=== PATIENT | female | born 1950 | race Caucasian/White ===

== ENCOUNTER → 2018-04-24 | Outpatient (CLI) | payer MEDICARE, MEDICAID ==
--- NOTE | 2018-04-24 09:23 | Diagnostic Imaging Report ---
INDICATION: Left knee pain. AP, oblique, and lateral views of the left knee are obtained. No fracture or acute bony abnormality is seen. There is no overt joint effusion. IMPRESSION: Negative left knee. Dictated by: Dictated on workstation # [id number]
--- NOTE | 2018-04-24 09:46 | Diagnostic Imaging Report ---
INDICATION: Nondisplaced fracture left great toe, followup. TECHNIQUE: 3 views of the left great toe (it is noted this is labeled as to the left foot, however positioning is typically demonstrated with the right foot.) CORRELATION STUDY: None FINDINGS: There is obliquely oriented fracture at the distal medial tuft of the great toe. There is slight medial and dorsal displacement of the main fracture fragment. Diastasis along the major fracture line of approximately 1-2 mm. The proximal phalanx and interphalangeal joint unremarkable. Very mild hallux varus primus first alignment suggested. The remaining toes appear to be held in partial flexure. Prominent plantar calcaneal spur formation present. The soft tissues are unremarkable. IMPRESSION: 1. Mildly diastased obliquely oriented fracture of the medial distal tuft of the great toe. Dictated by: Dictated on workstation # [id number]
== END ==
LOC: RAD FS 08:28
PROVIDERS: ATTEND Nurse Practitioner
DX: S92.425D Nondisplaced fracture of distal phalanx of left great toe, subsequent encounter for fracture with routine healing (principal); S92.404D Nondisplaced unspecified fracture of right great toe, subsequent encounter for fracture with routine healing; S80.02XS Contusion of left knee, sequela; M22.2X2 Patellofemoral disorders, left knee
CPT/HCPCS: 73562; 73660

== ENCOUNTER 2018-09-23 20:56 | Emergency (ER) | payer BC, MEDICARE, MEDICAID ==
[~2018-09-23] VITALS: Ht 170.2 cm; Wt 77.1 kg
--- OUTSIDE RECORDS SUMMARY | 2018-09-23 21:02 | XMS REPORT | Continuity of Care Document ---
Author Organization Unknown Address Unknown Phone Unavailable Allergies There is no data. Medications There is no data. Problems Date Dx Coded Attending Type Code Diagnosis Diagnosed By 05/07/2018 DOUG JACKSON Ot M22.2X2 PATELLOFEMORAL DISORDERS, LEFT KNEE 05/07/2018 DOUG JACKSON Ot S80.02XS CONTUSION OF LEFT KNEE, SEQUELA 05/07/2018 DOUG JACKSON Ot S92.404D NONDISP UNSP FX RIGHT GREAT TOE, SUBS FO 05/07/2018 DOUG JACKSON Ot S92.425D NONDISP FX OF DIST PHALANX OF L GREAT TO 05/09/2018 DOUG JACKSON Ot M22.2X2 PATELLOFEMORAL DISORDERS, LEFT KNEE 05/09/2018 DOUG JACKSON Ot S80.02XS CONTUSION OF LEFT KNEE, SEQUELA 05/09/2018 DOUG JACKSON Ot S92.404D NONDISP UNSP FX RIGHT GREAT TOE, SUBS FO 05/09/2018 DOUG JACKSON Ot S92.425D NONDISP FX OF DIST PHALANX OF L GREAT TO 05/09/2018 DOUG JACKSON Ot M22.2X2 PATELLOFEMORAL DISORDERS, LEFT KNEE 05/09/2018 DOUG JACKSON Ot S80.02XS CONTUSION OF LEFT KNEE, SEQUELA 05/09/2018 DOUG JACKSON Ot S92.404D NONDISP UNSP FX RIGHT GREAT TOE, SUBS FO 05/09/2018 DOUG JACKSON Ot S92.425D NONDISP FX OF DIST PHALANX OF L GREAT TO 05/09/2018 DOUG JACKSON Ot M22.2X2 PATELLOFEMORAL DISORDERS, LEFT KNEE 05/09/2018 DOUG JACKSON Ot S80.02XS CONTUSION OF LEFT KNEE, SEQUELA 05/09/2018 DOUG JACKSON Ot S92.404D NONDISP UNSP FX RIGHT GREAT TOE, SUBS FO 05/09/2018 DOUG JACKSON Ot S92.425D NONDISP FX OF DIST PHALANX OF L GREAT TO 05/10/2018 DOUG JACKSON Ot M22.2X2 PATELLOFEMORAL DISORDERS, LEFT KNEE 05/10/2018 DOUG JACKSON Ot S80.02XS CONTUSION OF LEFT KNEE, SEQUELA 05/10/2018 DOUG JACKSON Ot S92.404D NONDISP UNSP FX RIGHT GREAT TOE, SUBS FO 05/10/2018 DOUG JACKSON Ot S92.425D NONDISP FX OF DIST PHALANX OF L GREAT TO 06/14/2018 DOUG JACKSON Ot M22.2X2 PATELLOFEMORAL DISORDERS, LEFT KNEE 06/14/2018 DOUG JACKSON Ot S80.02XS CONTUSION OF LEFT KNEE, SEQUELA 06/14/2018 DOUG JACKSON Ot S92.404D NONDISP UNSP FX RIGHT GREAT TOE, SUBS FO 06/14/2018 DOUG JACKSON Ot S92.425D NONDISP FX OF DIST PHALANX OF L GREAT TO 06/14/2018 DOUG JACKSON Ot M22.2X2 PATELLOFEMORAL DISORDERS, LEFT KNEE 06/14/2018 DOUG JACKSON Ot S80.02XS CONTUSION OF LEFT KNEE, SEQUELA 06/14/2018 DOUG JACKSON Ot S92.404D NONDISP UNSP FX RIGHT GREAT TOE, SUBS FO 06/14/2018 DOUG JACKSON Ot S92.425D NONDISP FX OF DIST PHALANX OF L GREAT TO 06/15/2018 DOUG JACKSON Ot M22.2X2 PATELLOFEMORAL DISORDERS, LEFT KNEE 06/15/2018 DOUG JACKSON Ot S80.02XS CONTUSION OF LEFT KNEE, SEQUELA 06/15/2018 DOUG JACKSON Ot S92.404D NONDISP UNSP FX RIGHT GREAT TOE, SUBS FO 06/15/2018 DOUG JACKSON Ot S92.425D NONDISP FX OF DIST PHALANX OF L GREAT TO 08/16/2018 DOUG JACKSON Ot M22.2X2 PATELLOFEMORAL DISORDERS, LEFT KNEE 08/16/2018 DOUG JACKSON Ot S80.02XS CONTUSION OF LEFT KNEE, SEQUELA 08/16/2018 DOUG JACKSON Ot S92.404D NONDISP UNSP FX RIGHT GREAT TOE, SUBS FO 08/16/2018 DOUG JACKSON Ot S92.425D NONDISP FX OF DIST PHALANX OF L GREAT TO 08/16/2018 DOUG JACKSON Ot M22.2X2 PATELLOFEMORAL DISORDERS, LEFT KNEE 08/16/2018 DOUG JACKSON Ot S80.02XS CONTUSION OF LEFT KNEE, SEQUELA 08/16/2018 DOUG JACKSON Ot S92.404D NONDISP UNSP FX RIGHT GREAT TOE, SUBS FO 08/16/2018 DOUG JACKSON Ot S92.425D NONDISP FX OF DIST PHALANX OF L GREAT TO 08/17/2018 DOUG JACKSON Ot M22.2X2 PATELLOFEMORAL DISORDERS, LEFT KNEE 08/17/2018 DOUG JACKSON Ot S80.02XS CONTUSION OF LEFT KNEE, SEQUELA 08/17/2018 DOUG JACKSON Ot S92.404D NONDISP UNSP FX RIGHT GREAT TOE, SUBS FO 08/17/2018 DOUG JACKSON Ot S92.425D NONDISP FX OF DIST PHALANX OF L GREAT TO 08/31/2018 DOUG JACKSON Ot M22.2X2 PATELLOFEMORAL DISORDERS, LEFT KNEE 08/31/2018 DOUG JACKSON Ot S80.02XS CONTUSION OF LEFT KNEE, SEQUELA 08/31/2018 DOUG JACKSON Ot S92.404D NONDISP UNSP FX RIGHT GREAT TOE, SUBS FO 08/31/2018 DOUG JACKSON Ot S92.425D NONDISP FX OF DIST PHALANX OF L GREAT TO Procedures There is no data. Results There is no data. Encounters ACCT No. Visit Date/Time Discharge Status Pt. Type Provider Facility Loc./Unit Complaint [id number] 06/05/2018 10:00:00 06/05/2018 23:59:59 CLS Outpatient DAVID NOYOLA [facility] [id number] 04/24/2018 08:28:00 04/24/2018 23:59:59 CLS Outpatient DOUG JACKSON [facility] FS S92.404D D80.02XS M22.2X2
--- NOTE | 2018-09-23 21:42 | Diagnostic Imaging Report ---
EXAMINATION: Right elbow radiographs, 2 views. COMPARISON: None. HISTORY: 67-year-old female, fall off porch. Right elbow pain. FINDINGS: There is no elbow joint effusion. There is no elbow joint dislocation. There is minimal degenerative type enthesopathy at the triceps tendon insertion. There are osteophytes arising from the coronoid without pronounced joint space loss. There is no identified acute fracture. There is no radiopaque foreign body. IMPRESSION: No identified acute bony abnormality at the level of the right elbow. Dictated by: Dictated on workstation # [id number]
--- NOTE | 2018-09-23 21:43 | Diagnostic Imaging Report ---
EXAMINATION: Right wrist radiographs, 3 views. COMPARISON: None. HISTORY: 67-year-old female, fall. Right wrist pain. FINDINGS: There is a chronic fracture deformity of the ulnar styloid. 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 There is no identified acute fracture. There is no radiopaque foreign body. IMPRESSION: 1. No identified acute bony abnormality at the level of the right wrist. 2. Remote prior fracture deformity of the ulnar styloid. 3. Advanced distal radioulnar arthritis. Dictated by: Dictated on workstation # [id number]
--- NOTE | 2018-09-23 22:00 | ED Upper Extremity ---
General Chief Complaint: Upper Extremity Stated Complaint: RIGHT ARM PAIN Nursing Triage Note: pt fell off porch injuring right arm, pt with full rom, co wrist and elbow pain, minor abrasions noted to elbow Nursing Sepsis Screen: No Definite Risk History of Present Illness Date Seen by Provider: Sep 23, 2018 Time Seen by Provider: 21:55 Initial Comments This 67-year-old lady fell off porch injuring right arm over her wrist and right elbow. Pt with full rom, co wrist and elbow pain, minor abrasions noted to elbow Onset: just prior to arrival Severity: mild Pain/Injury Location: right elbow, right wrist Method of Injury: fell Modifying Factors: Improves With Movement Allergies and Home Medications Patient Home Medication List Home Medication List Reviewed: Yes Review of Systems Constitutional: see HPI EENTM: see HPI Respiratory: see HPI Cardiovascular: see HPI Gastrointestinal: see HPI Genitourinary: see HPI Musculoskeletal: see HPI Skin: see HPI Psychiatric/Neurological: No Symptoms Reported, See HPI Past Ppznwoc-Xzudoy-Bqgmii Hx Past Med/Social Hx: Reviewed Nursing Past Med/Soc Hx Patient Social History Alcohol Use: Denies Use Recreational Drug Use: No Smoking Status: Never a Smoker 2nd Hand Smoke Exposure: No Recent Foreign Travel: No Contact w/Someone Who Travel: No Recent Infectious Disease Expo: No Recent Hopitalizations: No Physical Abuse: No Sexual Abuse: No Mistreated: No Fear: No Seasonal Allergies Seasonal Allergies: No Past Medical History Surgeries: No Tonsillectomy, Tubal Ligation Respiratory: No Cardiac: Yes Hypertension Neurological: No Genitourinary: No Gastrointestinal: No Musculoskeletal: No Endocrine: No HEENT: No Cancer: No Psychosocial: No Integumentary: No Blood Disorders: No Physical Exam Vital Signs Vital Signs - First Documented 09/23/18 21:09 Temp 98.4 Pulse 68 Resp 18 B/P (MAP) 138/90 (106) Pulse Ox 98 O2 Delivery Room Air Capillary Refill : Less Than 3 Seconds Height, Weight, BMI Height: 5'7.00" Weight: 170lbs. oz. 77.486601oi; BMI Method:Stated General Appearance: no apparent distress Elbow/Forearm: bone tenderness Wrist: Yes bone tenderness, Yes soft tissue tenderness Procedures/Interventions Splinting and Joint Reduction : Pre-Proc Neuro Vasc Exam: normal Post-Proc Neuro Vasc Exam: normal Progress Velcro splint was placed on the right wrist and the patient was placed in a sling Progress Velcro splint was placed in the right wrist and the patient was placed in a sling Arm Sling: [place] Splints: [place] Wrist Progress/Results/Core Measures Results/Orders My Orders Orders - EL RINCON MD Wrist 3 View Right (09/23/18 21:12) Elbow 2 View Right (09/23/18 21:12) Vital Signs/I&O 09/23/18 21:09 Temp 98.4 Pulse 68 Resp 18 B/P (MAP) 138/90 (106) Pulse Ox 98 O2 Delivery Room Air Blood Pressure Mean: 106 Progress Progress Note : Time: 22:07 Progress Note This 67-year-old lady injured her right elbow and right wrist. She has abrasion over right elbow. Examination reveals her slight tenderness of the right elbow and right wrist X-rays of the wrist and elbow are negative for fractures Patient was placed in a Velcro splint in the right wrist and placed in a sling Post splinting the patient has good neurovascular function She is instructed to take ibuprofen for pain Departure Impression Primary Impression: Contusion of right wrist Additional Impressions: Contusion of right elbow Abrasion of right elbow Disposition: 01 HOME, SELF-CARE Condition: Improved Departure-Patient Inst. Referrals: [facility][1]/[facility] (PCP) Primary Care Physician DAVID NOYOLA MD (Family) Primary Care Physician Patient Instructions: Common Wrist Injuries (DC), Skin Abrasions (DC), Contusion (DC), Wrist Sprain (DC) Add. Discharge Instructions: Please follow-up with your doctor as needed. Take ibuprofen for pain All discharge instructions reviewed with patient and/or family. Voiced understanding. EL RINCON MD Sep 23, 2018 22:00
[2018-09-23 22:20] VITALS: BP 138/90
== END 2018-09-23 22:17 | disposition home or self-care (01) ==
LOC: EDUNIT# 20:56 → ER FS 20:58
DX: S50.01XA Contusion of right elbow, initial encounter (principal); S60.211A Contusion of right wrist, initial encounter; I10 Essential (primary) hypertension; Z98.51 Tubal ligation status; Z90.89 Acquired absence of other organs; W17.89XA Other fall from one level to another, initial encounter
CPT/HCPCS: 73070; 73110

== ENCOUNTER 2018-10-03 18:37 | Inpatient (IN) | payer BC, MEDICARE, MEDICAID ==
[~2018-10-03] VITALS: Ht 170.2 cm; Wt 78.1 kg
[2018-10-03] MEDS ORDERED: NS IV 1000 ML 1,000 ML IV SCH (19:00)
[2018-10-03] MEDS ORDERED: ASPIRIN 81 MG CHEW (CHILDREN'S ASA) PO ONE (19:00)
--- NOTE | 2018-10-03 19:07 | ED General ---
General Chief Complaint: Chest Pain Stated Complaint: CHEST PAIN History of Present Illness Date Seen by Provider: Oct 03, 2018 Time Seen by Provider: 19:03 Initial Comments Patient presenting to the emergency department for evaluation of chest pain that has been going on since yesterday afternoon and went on through yesterday off and on as well as all day today off and on and then stopped around 4 PM. She says that she has felt yucky all day long. I asked her what she meant by this and she says that she feels tired and achy all over. She says the pain in her chest is left-sided and she describes as achy as well. She denies any pressure tightness sharp sensations or radiation. She denies diaphoresis shortness of breath nausea vomiting. She says that she has a history of hypertension but did not take her medicines today and she felt lightheaded especially whenever she stood up. She says that she has no high cholesterol and diabetes or smoking history but her father has had multiple heart attacks. She denies any recent cardiac risk stratification but she thinks she had a normal stress test approximately 10 years ago. Allergies and Home Medications Allergies Coded Allergies: No Known Drug Allergies (Unverified , 10/03/18) Patient Home Medication List Home Medication List Reviewed: Yes Review of Systems Review of Systems Constitutional: malaise, weakness EENTM: no symptoms reported Respiratory: no symptoms reported Cardiovascular: chest pain Gastrointestinal: no symptoms reported Genitourinary: no symptoms reported Musculoskeletal: joint pain, muscle pain Skin: no symptoms reported Psychiatric/Neurological: No Symptoms Reported All Other Systems Reviewed Negative Unless Noted: Yes Past Hkrnurp-Qgiltl-Okocbz Hx Patient Social History 2nd Hand Smoke Exposure: No Recent Hopitalizations: No Seasonal Allergies Seasonal Allergies: No Past Medical History Surgeries: No Tonsillectomy, Tubal Ligation Respiratory: No Cardiac: Yes Hypertension Neurological: No Genitourinary: No Gastrointestinal: No Musculoskeletal: No Endocrine: No HEENT: No Cancer: No Psychosocial: No Integumentary: No Blood Disorders: No Physical Exam Vital Signs Vital Signs - First Documented 10/03/18 18:40 Temp 99.2 Pulse 92 Resp 21 B/P (MAP) 134/87 (103) Pulse Ox 96 Capillary Refill : Height, Weight, BMI Height: 5'7.00" Weight: 170lbs. oz. 77.470820lo; BMI Method:Stated General Appearance: No Apparent Distress, WD/WN Eyes: Bilateral Eye Normal Inspection HEENT: PERRL/EOMI Neck: Supple Respiratory: No Accessory Muscle Use, No Respiratory Distress Cardiovascular: Regular Rate, Rhythm Gastrointestinal: Non Tender, Soft Back: Normal Inspection Extremity: Normal Capillary Refill Neurologic/Psychiatric: Alert, Oriented x3 Skin: Normal Color, Warm/Dry Focused Exam Lactate Level 10/03/18 20:05: Lactic Acid Level Laboratory Tests Test 10/03/18 20:05 Progress/Results/Core Measures Suspected Sepsis SIRS Temperature: Pulse: Respiratory Rate: Laboratory Tests 10/03/18 18:52: White Blood Count 15.5H Blood Pressure / Mean: 10/03/18 20:05: Laboratory Tests 10/03/18 18:52: Creatinine 1.28, Platelet Count 243, Total Bilirubin 0.4 Results/Orders Lab Results Laboratory Tests Test 10/03/18 18:52 10/03/18 19:17 10/03/18 20:05 Range/Units White Blood Count 15.5 H 4.3-11.0 10^3/uL Red Blood Count 5.09 4.35-5.85 10^6/uL Hemoglobin 15.4 11.5-16.0 G/DL Hematocrit 47 35-52 % Mean Corpuscular Volume 92 80-99 FL Mean Corpuscular Hemoglobin 30 25-34 PG Mean Corpuscular Hemoglobin Concent 33 32-36 G/DL Red Cell Distribution Width 13.0 10.0-14.5 % Platelet Count 243 130-400 10^3/uL Mean Platelet Volume 10.4 7.4-10.4 FL Neutrophils (%) (Auto) 81 H 42-75 % Lymphocytes (%) (Auto) 14 12-44 % Monocytes (%) (Auto) 4 0-12 % Eosinophils (%) (Auto) 1 0-10 % Basophils (%) (Auto) 0 0-10 % Neutrophils # (Auto) 12.5 H 1.8-7.8 X 10^3 Lymphocytes # (Auto) 2.1 1.0-4.0 X 10^3 Monocytes # (Auto) 0.7 0.0-1.0 X 10^3 Eosinophils # (Auto) 0.1 0.0-0.3 10^3/uL Basophils # (Auto) 0.1 0.0-0.1 10^3/uL Neutrophils % (Manual) 81 % Lymphocytes % (Manual) 15 % Monocytes % (Manual) 3 % Eosinophils % (Manual) 0 % Basophils % (Manual) 1 % Band Neutrophils 0 % D-Dimer 0.38 0.00-0.49 UG/ML Sodium Level 141 135-145 MMOL/L Potassium Level 3.8 3.6-5.0 MMOL/L Chloride Level 102 98-107 MMOL/L Carbon Dioxide Level 24 21-32 MMOL/L Anion Gap 15 H 5-14 MMOL/L Blood Urea Nitrogen 22 H 7-18 MG/DL Creatinine 1.28 0.60-1.30 MG/DL Estimat Glomerular Filtration Rate 42 BUN/Creatinine Ratio 17 Glucose Level 250 H 70-105 MG/DL Calcium Level 9.2 8.5-10.1 MG/DL Corrected Calcium 9.3 8.5-10.1 MG/DL Magnesium Level 1.8 1.6-2.4 MG/DL Total Bilirubin 0.4 0.1-1.0 MG/DL Aspartate Amino Transf (AST/SGOT) 22 5-34 U/L Alanine Aminotransferase (ALT/SGPT) 14 0-55 U/L Alkaline Phosphatase 92 40-136 U/L Troponin I 0.94 *H <0.30 NG/ML Pro-B-Type Natriuretic Peptide 28771.0 H <75.0 PG/ML Total Protein 6.7 6.4-8.2 GM/DL Albumin 3.9 3.2-4.5 GM/DL Lipase 68 8-78 U/L Urine Color YELLOW Urine Clarity CLEAR Urine pH 5.5 5-9 Urine Specific Leslie 1.025 H 1.016-1.022 Urine Protein NEGATIVE NEGATIVE Urine Glucose (UA) NEGATIVE NEGATIVE Urine Ketones NEGATIVE NEGATIVE Urine Nitrite NEGATIVE NEGATIVE Urine Bilirubin NEGATIVE NEGATIVE Urine Urobilinogen 0.2 NORMAL MG/DL Urine Leukocyte Esterase NEGATIVE NEGATIVE Urine RBC (Auto) NEGATIVE NEGATIVE Urine RBC NONE /HPF Urine WBC 0-2 /HPF Urine Squamous Epithelial Cells 10-25 H /HPF Urine Crystals NONE /LPF Urine Bacteria FEW H /HPF Urine Casts NONE /LPF Urine Mucus NONE /LPF Urine Culture Indicated NO My Orders Orders - RAKEL DON DO Ekg Tracing (10/03/18 18:59) Chest 1 View Ap/Pa Only (10/03/18 18:59) Cbc With Automated Diff (10/03/18 18:59) Comprehensive Metabolic Panel (10/03/18 18:59) Fibrin Degradation Products (10/03/18 18:59) Lipase (10/03/18 18:59) Magnesium (10/03/18 18:59) Probnp Fs (10/03/18 18:59) Troponin I (10/03/18 18:59) Ua Culture If Indicated (10/03/18 18:59) Aspirin Chewable Tablet (Baby Aspirin Ch (10/03/18 19:00) Ns Iv 1000 Ml (Sodium Chloride 0.9%) (10/03/18 19:00) Manual Differential (10/03/18 18:52) Ceftriaxone For Iv Use (Rocephin For I (10/03/18 19:45) Azithromycin Injection (Zithromax Inject (10/03/18 20:00) Blood Culture (10/03/18 19:56) Lactic Acid Analyzer (10/03/18 19:56) Blood Culture (10/03/18 20:01) Enoxaparin Injection (Lovenox Injection) (10/03/18 20:15) Medications Given in ED Current Medications Medications Dose Ordered Sig/Dario Route Start Time Stop Time Status Last Admin Dose Admin Aspirin 324 mg ONCE ONCE PO 10/03/18 19:00 10/03/18 19:01 DC 10/03/18 19:08 324 MG Azithromycin 500 mg/Sodium Chloride 250 ml @ 250 mls/hr ONCE ONCE IV 10/03/18 20:00 10/03/18 20:59 10/03/18 20:14 250 MLS/HR Ceftriaxone Sodium 2000 mg/ Sterile Water 20 ml @ 240 mls/hr ONCE ONCE IV 10/03/18 19:45 10/03/18 19:49 DC 10/03/18 19:43 240 MLS/HR Vital Signs/I&O 10/03/18 18:40 Temp 99.2 Pulse 92 Resp 21 B/P (MAP) 134/87 (103) Pulse Ox 96 Capillary Refill : Progress Note : Progress Note Patient's EKG does not show any obvious ST elevation however she does have inverted T waves in lateral leads including V5 V6 and aVL. Will check labs give IV fluids and aspirin and observe closely. Patient has quite abnormal workup including leukocytosis with abnormal chest x- ray so I went ahead and started her on antibiotics. She does have a very elevated BNP as well so this could just will be pulmonary edema. Her troponin is elevated and she has an abnormal EKG but she is chest pain-free at this time. She will be treated as an NSTEMI with aspirin here as well as Lovenox per the request of Dr. Mcdaniel. Patient is nontoxic but she is at high risk for complications. I spoke to Dr. Hernandes who is willing to accept patient. She will be transferred to [place] [facility] in guarded condition. Lactic acid and blood cultures are both pending at this time. Patient has had normal vital signs throughout her emergency department stay. Critical Care Note Critical Care Total Time (minutes) 36 Departure Impression Primary Impression: NSTEMI (non-ST elevated myocardial infarction) Additional Impressions: Acute electrocardiogram changes CAP (community acquired pneumonia) Leukocytosis Elevated brain natriuretic peptide (BNP) level Disposition: ADMITTED INPATIENT Condition: Stable Departure-Patient Inst. Referrals: SELF,DAVID BONNER (PCP/Family) Primary Care Physician RAKEL DON DO Oct 03, 2018 19:07
[2018-10-03 19:09] LABS: HEMATOCRIT 47 % (35-52); HEMOGLOBIN 15.4 G/DL (11.5-16.0); MEAN CORPUSCULAR HEMOGLOBIN 30 PG (25-34); MEAN CORPUSCULAR HGB CONC 33 G/DL (32-36); MEAN CORPUSCULAR VOLUME 92 FL (80-99); MEAN PLATELET VOLUME 10.4 FL (7.4-10.4); PLATELET COUNT 243 10^3/uL (130-400); WHITE BLOOD COUNT 15.5 10^3/uL (4.3-11.0)
[2018-10-03 19:10] LABS: BASOPHILS # (AUTO) 0.1 10^3/uL (0.0-0.1); BASOPHILS % (AUTO) 0 % (0-10); EOSINOPHILS # (AUTO) 0.1 10^3/uL (0.0-0.3); EOSINOPHILS % (AUTO) 1 % (0-10); LYMPHOCYTES # (AUTO) 2.1 X 10^3 (1.0-4.0); LYMPHOCYTES % (AUTO) 14 % (12-44); MONOCYTES # (AUTO) 0.7 X 10^3 (0.0-1.0); MONOCYTES % (AUTO) 4 % (0-12); NEUTROPHILS # (AUTO) 12.5 X 10^3 (1.8-7.8); NEUTROPHILS % (AUTO) 81 % (42-75)
--- NOTE | 2018-10-03 19:25 | Diagnostic Imaging Report ---
EXAMINATION: Chest, 1 view. HISTORY: Chest pain, dizziness. COMPARISON: No comparison is available. FINDINGS: There is mild right basilar airspace opacity concerning for pneumonia. No pleural effusion or pneumothorax. No edema. Heart size is normal. IMPRESSION: Mild right basilar airspace opacity concerning for pneumonia. Dictated by: Dictated on workstation # [id number]
[2018-10-03 19:33] LABS: BACTERIA,URINE FEW /HPF; BILIRUBIN,URINE NEGATIVE (NEGATIVE); CLARITY,URINE CLEAR; COLOR,URINE YELLOW; GLUCOSE, URINE (UA) NEGATIVE (NEGATIVE); KETONES,URINE NEGATIVE (NEGATIVE); LEUKOCYTE ESTERASE ,URINE NEGATIVE (NEGATIVE); NITRITE,URINE NEGATIVE (NEGATIVE); PH,URINE 5.5 (5-9); PROTEIN,URINE NEGATIVE (NEGATIVE); UROBILINOGEN,URINE 0.2 MG/DL (NORMAL); WBC,URINE 0-2 /HPF
[2018-10-03 19:42] LABS: POTASSIUM 3.8 MMOL/L (3.6-5.0)
[2018-10-03 19:43] LABS: BILIRUBIN,TOTAL 0.4 MG/DL (0.1-1.0); CALCIUM 9.2 MG/DL (8.5-10.1); CREATININE SERUM 1.28 MG/DL (0.60-1.30); MAGNESIUM 1.8 MG/DL (1.6-2.4)
[2018-10-03 19:44] LABS: TOTAL PROTEIN 6.7 GM/DL (6.4-8.2)
[2018-10-03 19:45] LABS: ALBUMIN 3.9 GM/DL (3.2-4.5)
[2018-10-03] MEDS ORDERED: cefTRIAXone FOR IV USE 2,000 MG in WATER (STERILE) FOR INJECTION 20 ML IV ONE (19:45)
[2018-10-03 19:46] LABS: BAND NEUTROPHILS 0 %; BASOPHILS % (MANUAL) 1 %; EOSINOPHILS % (MANUAL) 0 %; LYMPHOCYTES % (MANUAL) 15 %; MONOCYTES % (MANUAL) 3 %; NEUTROPHILS % (MANUAL) 81 %
[2018-10-03] MEDS ORDERED: AZITHROMYCIN INJECTION 500 MG in NS (IVPB) 250 ML IV ONE (20:00)
[2018-10-03] MEDS ORDERED: ENOXAPARIN 40 MG/0.4 ML (LOVENOX) SYR SQ SCH (20:15)
--- NOTE | 2018-10-03 20:50 | NUR ---
Ems here for transport.
[2018-10-03 21:45] VITALS: BP 126/92
[2018-10-03 21:56] VITALS: BP 126/92
[2018-10-03 22:00] VITALS: BP 116/84
[2018-10-03 23:00] VITALS: BP 115/86
[2018-10-03 23:40] VITALS: BP 115/86
[2018-10-03] MEDS ORDERED: RT-ALBUTEROL/IPRATROPIUM 3 ML (DUONEB) VIAL INH PRN (23:45)
[2018-10-04] VITALS (7 sets, daily range): BP systolic 93–130; BP diastolic 53–84
[2018-10-04] MEDS: RT-ALBUTEROL/IPRATROPIUM 3 ML (DUONEB) VIAL INH SCH ×4 (02:04→21:52)
[2018-10-04 03:30] LABS: BASOPHILS % (AUTO) 0 % (0-10); EOSINOPHILS # (AUTO) 0.1 10^3/uL (0.0-0.3); EOSINOPHILS % (AUTO) 1 % (0-10); HEMATOCRIT 42 % (35-52); HEMOGLOBIN 13.9 G/DL (11.5-16.0); LYMPHOCYTES # (AUTO) 2.3 X 10^3 (1.0-4.0); LYMPHOCYTES % (AUTO) 19 % (12-44); MEAN CORPUSCULAR HEMOGLOBIN 30 PG (25-34); MEAN CORPUSCULAR HGB CONC 33 G/DL (32-36); MEAN CORPUSCULAR VOLUME 91 FL (80-99); MEAN PLATELET VOLUME 10.8 FL (7.4-10.4); MONOCYTES # (AUTO) 0.6 X 10^3 (0.0-1.0); MONOCYTES % (AUTO) 5 % (0-12); NEUTROPHILS # (AUTO) 9.3 X 10^3 (1.8-7.8); NEUTROPHILS % (AUTO) 76 % (42-75); PLATELET COUNT 218 10^3/uL (130-400); RED CELL DISTRIBUTION WIDTH 13.5 % (10.0-14.5); WHITE BLOOD COUNT 12.2 10^3/uL (4.3-11.0)
[2018-10-04 03:54] LABS: ALBUMIN 3.4 GM/DL (3.2-4.5); BILIRUBIN,TOTAL 0.5 MG/DL (0.1-1.0); CALCIUM 8.7 MG/DL (8.5-10.1); CREATININE SERUM 1.2 MG/DL (0.60-1.30); TOTAL PROTEIN 5.8 GM/DL (6.4-8.2)
--- NOTE | 2018-10-04 06:38 | Pulmonary Consultation ---
History of Present Illness History of Present Illness Date of Consultation 10/04/18 06:38 Time Seen by Provider: 08:16 Date of Admission History of Present Illness 67yo presented to ED secondary to left sided nonradiating CP, fatigue, generalized aches over the last 3 days. Pt was found to have RLL PNA, and an elevated troponin upon admission. Denies SOB. No n/v or abdominal pain. Allergies and Home Medications Allergies Coded Allergies: No Known Drug Allergies (Unverified , 10/03/18) Past Jbqhgdu-Isgass-Gkuozc Hx Patient Social History Alcohol Use: Denies Use Number of Drinks Today: 0 Recreational Drug Use: No Drug of Choice: reports not taking any drugs Smoking Status: Never a Smoker 2nd Hand Smoke Exposure: No Recent Foreign Travel: No Contact w/Someone Who Travel: No Recent Infectious Disease Expo: No Recent Hopitalizations: No Physical Abuse: No Sexual Abuse: No Mistreated: No Fear: No Seasonal Allergies Seasonal Allergies: Yes Past Medical History Surgeries: Yes (Tubal ligation) Tonsillectomy, Tubal Ligation Respiratory: No Cardiac: Yes (hypertension) Hypertension Neurological: No Genitourinary: No Gastrointestinal: No Musculoskeletal: Yes (arthritis in knee and wrists) Endocrine: No HEENT: No (Hard of hearing) Cancer: No Psychosocial: No Integumentary: No Blood Disorders: No Adverse Reaction/Blood Tranf: No Family Medical History Cardiovascular disease 19 FATHER G8 SISTER Myocardial infarction 19 FATHER Review of Systems Time Seen by Provider: 08:22 Constitutional: Weakness, Malaise; No: Fever, Chills, Sweats, Other Eyes: No: Pain, Vision change, Conjunctivae inflammation, Eyelid inflammation, Other, Redness ENT: Nose congestion Respiratory: Cough, Dry, Shortness of breath; No: Wheezing Gastrointestinal: Nausea Sepsis Event Evaluation Height, Weight, BMI Height: 5'7.00" Weight: 171lbs. 6.0oz. 77.475243ib; 26.8 BMI Method:Stated Exam Exam Vital Signs Date Time Temp Pulse Resp B/P (MAP) Pulse Ox O2 Delivery O2 Flow Rate FiO2 10/04/18 04:10 96 10/04/18 04:00 65 16 108/79 (89) 94 Room Air 10/04/18 02:08 95 Room Air 10/04/18 02:00 80 23 106/81 (89) 94 Room Air 10/04/18 01:00 64 10/04/18 01:00 66 16 107/81 (90) 93 Room Air 10/04/18 00:50 96 10/04/18 00:00 75 18 113/79 (90) 94 Room Air 10/03/18 23:40 64 96 10/03/18 23:00 64 12 115/86 (96) 96 Room Air 10/03/18 22:00 73 25 116/84 (95) 96 Room Air 10/03/18 21:56 98.2 73 24 126/92 96 Room Air 10/03/18 21:45 72 10/03/18 21:45 67 126/92 (103) 93 Room Air 10/03/18 20:55 99.0 83 21 127/90 (102) 96 Room Air 10/03/18 18:40 99.2 92 21 134/87 (103) 96 I & O 10/04/18 07:00 Intake Total 3240 ml Output Total 750 ml Balance 2490 ml Height & Weight Height: 5'7.00" Weight: 171lbs. 6.0oz. 77.067538da; 26.8 BMI Method:Stated General Appearance: No Apparent Distress, WD/WN HEENT: PERRL/EOMI Neck: Supple Respiratory: No Accessory Muscle Use, No Respiratory Distress, Decreased Breath Sounds Cardiovascular: Regular Rate, Rhythm Capillary Refill: Less Than 3 Seconds Gastrointestinal: normal bowel sounds, non tender Extremity: Normal Capillary Refill Neurologic/Psychiatric: Alert, Oriented x3 Skin: Normal Color, Warm/Dry Results Lab Laboratory Tests 10/03/18 18:52 10/04/18 03:10 Assessment/Plan Assessment/Plan RLL pneumonia -Continue Rocephin and azithromycin -Cultures pending NSTEMI -Cardiology following CAD PRIYANKA ROLLINS DO Oct 04, 2018 06:38
--- NOTE | 2018-10-04 06:45 | Consultation-Cardiology ---
HPI-Cardiology Cardiology Consultation Date of Consultation 10/04/18 Date of Admission Time Seen by Provider: 06:42 Indication: chest pain HPI 67-year-old lady with history of hypertension, has been having some tightness in her chest for the past 3 days, did not feel well, complaining of generalized fatigue and loss of energy, came to the emergency room and noted to have elevate d troponin level. Had low-grade fever, no shortness of breath. No palpitation, no pedal edema, no syncope or near syncopal episodes Home Medications & Allergies Allergies: Coded Allergies: No Known Drug Allergies (Unverified , 10/03/18) Home Medication List Reviewed: Yes REQ-Tubmpk-Dwnpar Hx Patient Social History Employed/Student: employed Alcohol Use: Denies Use Recreational Drug Use: No Drug of Choice: reports not taking any drugs Smoking Status: Never a Smoker 2nd Hand Smoke Exposure: No Recent Foreign Travel: No Recent Infectious Disease Expo: No Recent Hopitalizations: No Physical Abuse Screen: No Sexual Abuse: No Past Medical History discussed below Family Medical History Family History: Cardiovascular disease 19 FATHER G8 SISTER Myocardial infarction 19 FATHER Review of Systems-General Review of Systems Constitutional: see HPI, malaise, weakness EENTM: see HPI, no symptoms reported Respiratory: no symptoms reported, see HPI Cardiovascular: see HPI, chest pain; No edema, No Hx of Intervention, No palpitations, No syncope, No vascular heart diseas, No other Gastrointestinal: no symptoms reported, see HPI Genitourinary: no symptoms reported, see HPI Musculoskeletal: see HPI, joint pain, muscle pain Skin: no symptoms reported, see HPI Psychiatric/Neurological: No Symptoms Reported, See HPI All Other Systems Reviewed Negative Unless Noted: Yes Reviewed Test Results Reviewed Test Results Lab Laboratory Tests Test 10/03/18 18:52 10/03/18 19:17 10/03/18 20:05 10/03/18 22:23 Range/Units White Blood Count 15.5 H 4.3-11.0 10^3/uL Red Blood Count 5.09 4.35-5.85 10^6/uL Hemoglobin 15.4 11.5-16.0 G/DL Hematocrit 47 35-52 % Mean Corpuscular Volume 92 80-99 FL Mean Corpuscular Hemoglobin 30 25-34 PG Mean Corpuscular Hemoglobin Concent 33 32-36 G/DL Red Cell Distribution Width 13.0 10.0-14.5 % Platelet Count 243 130-400 10^3/uL Mean Platelet Volume 10.4 7.4-10.4 FL Neutrophils (%) (Auto) 81 H 42-75 % Lymphocytes (%) (Auto) 14 12-44 % Monocytes (%) (Auto) 4 0-12 % Eosinophils (%) (Auto) 1 0-10 % Basophils (%) (Auto) 0 0-10 % Neutrophils # (Auto) 12.5 H 1.8-7.8 X 10^3 Lymphocytes # (Auto) 2.1 1.0-4.0 X 10^3 Monocytes # (Auto) 0.7 0.0-1.0 X 10^3 Eosinophils # (Auto) 0.1 0.0-0.3 10^3/uL Basophils # (Auto) 0.1 0.0-0.1 10^3/uL Neutrophils % (Manual) 81 % Lymphocytes % (Manual) 15 % Monocytes % (Manual) 3 % Eosinophils % (Manual) 0 % Basophils % (Manual) 1 % Band Neutrophils 0 % D-Dimer 0.38 0.00-0.49 UG/ML Sodium Level 141 135-145 MMOL/L Potassium Level 3.8 3.6-5.0 MMOL/L Chloride Level 102 98-107 MMOL/L Carbon Dioxide Level 24 21-32 MMOL/L Anion Gap 15 H 5-14 MMOL/L Blood Urea Nitrogen 22 H 7-18 MG/DL Creatinine 1.28 0.60-1.30 MG/DL Estimat Glomerular Filtration Rate 42 BUN/Creatinine Ratio 17 Glucose Level 250 H 70-105 MG/DL Calcium Level 9.2 8.5-10.1 MG/DL Corrected Calcium 9.3 8.5-10.1 MG/DL Magnesium Level 1.8 1.6-2.4 MG/DL Total Bilirubin 0.4 0.1-1.0 MG/DL Aspartate Amino Transf (AST/SGOT) 22 5-34 U/L Alanine Aminotransferase (ALT/SGPT) 14 0-55 U/L Alkaline Phosphatase 92 40-136 U/L Troponin I 0.94 *H 0.895 *H <0.028 NG/ML Pro-B-Type Natriuretic Peptide 00193.0 H <75.0 PG/ML Total Protein 6.7 6.4-8.2 GM/DL Albumin 3.9 3.2-4.5 GM/DL Lipase 68 8-78 U/L Urine Color YELLOW Urine Clarity CLEAR Urine pH 5.5 5-9 Urine Specific [place] 1.025 H 1.016-1.022 Urine Protein NEGATIVE NEGATIVE Urine Glucose (UA) NEGATIVE NEGATIVE Urine Ketones NEGATIVE NEGATIVE Urine Nitrite NEGATIVE NEGATIVE Urine Bilirubin NEGATIVE NEGATIVE Urine Urobilinogen 0.2 NORMAL MG/DL Urine Leukocyte Esterase NEGATIVE NEGATIVE Urine RBC (Auto) NEGATIVE NEGATIVE Urine RBC NONE /HPF Urine WBC 0-2 /HPF Urine Squamous Epithelial Cells 10-25 H /HPF Urine Crystals NONE /LPF Urine Bacteria FEW H /HPF Urine Casts NONE /LPF Urine Mucus NONE /LPF Urine Culture Indicated NO Lactic Acid Level 2.03 *H 0.50-2.00 MMOL/L Test 10/03/18 22:56 10/04/18 03:10 Range/Units Lactic Acid Level 0.99 0.50-2.00 MMOL/L White Blood Count 12.2 H 4.3-11.0 10^3/uL Red Blood Count 4.66 4.35-5.85 10^6/uL Hemoglobin 13.9 11.5-16.0 G/DL Hematocrit 42 35-52 % Mean Corpuscular Volume 91 80-99 FL Mean Corpuscular Hemoglobin 30 25-34 PG Mean Corpuscular Hemoglobin Concent 33 32-36 G/DL Red Cell Distribution Width 13.5 10.0-14.5 % Platelet Count 218 130-400 10^3/uL Mean Platelet Volume 10.8 H 7.4-10.4 FL Neutrophils (%) (Auto) 76 H 42-75 % Lymphocytes (%) (Auto) 19 12-44 % Monocytes (%) (Auto) 5 0-12 % Eosinophils (%) (Auto) 1 0-10 % Basophils (%) (Auto) 0 0-10 % Neutrophils # (Auto) 9.3 H 1.8-7.8 X 10^3 Lymphocytes # (Auto) 2.3 1.0-4.0 X 10^3 Monocytes # (Auto) 0.6 0.0-1.0 X 10^3 Eosinophils # (Auto) 0.1 0.0-0.3 10^3/uL Basophils # (Auto) 0.0 0.0-0.1 10^3/uL Sodium Level 143 135-145 MMOL/L Potassium Level 4.0 3.6-5.0 MMOL/L Chloride Level 111 H 98-107 MMOL/L Carbon Dioxide Level 22 21-32 MMOL/L Anion Gap 10 5-14 MMOL/L Blood Urea Nitrogen 20 H 7-18 MG/DL Creatinine 1.20 0.60-1.30 MG/DL Estimat Glomerular Filtration Rate 45 BUN/Creatinine Ratio 17 Glucose Level 161 H 70-105 MG/DL Calcium Level 8.7 8.5-10.1 MG/DL Corrected Calcium 9.2 8.5-10.1 MG/DL Total Bilirubin 0.5 0.1-1.0 MG/DL Aspartate Amino Transf (AST/SGOT) 18 5-34 U/L Alanine Aminotransferase (ALT/SGPT) 15 0-55 U/L Alkaline Phosphatase 80 40-136 U/L Troponin I 0.810 *H <0.028 NG/ML Total Protein 5.8 L 6.4-8.2 GM/DL Albumin 3.4 3.2-4.5 GM/DL Physical Exam Physical Exam Vital Signs Vital Signs - First Documented 10/03/18 10/03/18 18:40 20:55 Temp 99.2 Pulse 92 Resp 21 B/P (MAP) 134/87 (103) Pulse Ox 96 O2 Delivery Room Air Capillary Refill : Less Than 3 Seconds Height, Weight, BMI Height: 5'7.00" Weight: 171lbs. 6.0oz. [id number]; 26.8 BMI Method:Stated General Appearance: No Apparent Distress, WD/WN Eyes: Bilateral Eye Normal Inspection HEENT: PERRL/EOMI, TMs Normal, Normal ENT Inspection Neck: Normal Inspection, Non Tender, Supple Respiratory: No Accessory Muscle Use, No Respiratory Distress Cardiovascular: Regular Rate, Rhythm, No Edema, No Gallop, No Murmur Gastrointestinal: Non Tender, Soft Back: Normal Inspection Extremity: Normal Capillary Refill Neurologic/Psychiatric: Alert, Oriented x3 Skin: Normal Color, Warm/Dry Lymphatic: No Adenopathy A/P-Cardiology Admission Diagnosis Non-ST elevation myocardial infarction Coronary artery disease Hypertension Family history of heart disease Assessment/Plan Non-ST elevation myocardial infarction, subacute DE, patient started to have chest pain about 3 days ago. Still having elevated troponin with T-wave inversion in the anterolateral leads, planning to proceed with cardiac catheterization possible PTCA. Elevated BNP, no signs of heart failure, will evaluate left ventricular function. Increase hilar density on chest x-ray, mild leukocytosis, questionable pneumonia, Dr. Bojorquez was consulted. Next Hypertension, monitor blood pressure Questionable hyperlipidemia I will evaluate lipid profile. Strong family history of heart disease Clinical Quality Measures DVT/VTE Risk/Contraindication: Risk Factor Score Per Nursin RFS Level Per Nursing on Admit: 4+=Very High RUBEN PEREZ MD Oct 04, 2018 06:45
--- NOTE | 2018-10-04 06:46 | Cardiac Procedure Note-CS/ASA ---
Pre-Procedure Note Pre-Op Procedure Note H&P Reviewed The H&P was reviewed, patient examined and no changes noted. Date H&P Reviewed: Oct 04, 2018 Time H&P Reviewed: 06:46 Conscious Sedation Pre-Proced Time 06:46 ASA Score 3 For ASA 3 and 4: Consider anesthesia and medical clearance. Also, for patients with a history of failed moderate sedation consider anesthesia. Airway Lungs Heart ASA score ASA 1: a normal healthy patient ASA 2: a patient with a mild systemic disease (mid diabetes, controlled hypertension, obesity x ASA 3: a patient with a severe systemic disease that limits activity (angina, COPD, prior Myocardial infarction) ASA 4: a patient with an incapacitating disease that is a constant threat to life (CHF, renal failure) ASA 5: a moribund patient not expected to survive 24 hrs. (ruptured aneurysm) ASA 6: a declared brain- patient whose organs are being harvested. For emergent operations, add the letter E after the classification Mallampati Classification Grade 3 Sedation Plan Analgesia, Amnesia, Plan communicated to team members, Discussed options with patient/fam, Discussed risks with patient/fam The patient is an appropriate candidate to undergo the planned procedure, sedation, and anesthesia. The patient immediately re-assessed prior to indication. RUBEN PEREZ MD Oct 04, 2018 06:46
[2018-10-04] MEDS ORDERED: LIDOCAINE 1% INJ 20 ML 20 ML VIAL ONE (06:49)
[2018-10-04] MEDS ORDERED: NS IV 1000 ML 1,000 ML ONE (06:50)
[2018-10-04] MEDS ORDERED: fentaNYL INJECTION 100 MCG/2 ML AMP ONE (06:50)
[2018-10-04] MEDS ORDERED: MIDAZOLAM 5 MG/5 ML (VERSED) VIAL ONE (06:50)
[2018-10-04] MEDS ORDERED: HEParin (CATH LAB) 2,000 ML IV ONE (06:50)
[2018-10-04] MEDS ORDERED: PATIENT MAY USE OWN MEDS, ALL PO SCH (08:00)
--- NOTE | 2018-10-04 08:04 | Cardiac Cath Report ---
Cardiac Cath Report Physician (s)/Organic Preparation Technician (s) Physician RUBEN PEREZ MD Pre-Procedure Diagnosis Pre-Procedure Diagnosis: elevated troponin level Post-Procedure Note Procedure Start Date: Oct 04, 2018 Name of Procedure: left heart catheterization Findings/Procedure Note PROCEDURE NOTE: 67-year-old lady with history of hypertension, has been having some chest discomfort, generalized fatigue, came into the emergency room and noted to have elevated troponin level and BNP level. EKG abnormality in the anterolateral lead, decided to proceed with cardiac catheterization possible PTCA. After explaining the procedure to the patient, all pros and cons were explained, all questions were answered. The patient signed the consent and then she was placed on the cardiac catheterization laboratory. Groin was prepped SL fashion local anesthesia was used. Sheath placed in the right femoral artery. Samira right and left catheter were used to access the coronary system. Pigtail was used to access the left ventricular cavity. Left ventriculogram was done, pullback LV to aorta was done At the end of the procedure the sheath was removed. Closure device was used FINDINGS: Hemodynamics LV 121/19, end-diastolic pressure of 19 Aorta 100/67 mean of 77 ANATOMY: Left Main is free of obstructive disease Left Anterior Descending is free of obstructive disease Left Circumflex is free of obstructive disease Right Coronory Artery is large dominant artery with mild disease nonobstructive disease LV Gram is prominent with hypokinesia involving the mid to apical anterior wall true apex and inferoapical segment systolic function is reduced estimated ejection fraction 30 percent CONCLUSION: 1. Normal coronary system 2. Severe cardiomyopathy with hypokinesia involving the mid to apical anterior wall true apex and inferoapical segment with estimated ejection fraction 30 percent, nonischemic cardiomyopathy DISCUSSION AND RECOMMENDATION: patient will be initiated on medical therapy, start low-dose diuretic and evaluate tolerance and response Anesthesia Type: Conscious Sedation Estimated blood loss (mL): 15 ml Contrast Amount: 50 ml Total Radiation Dose: 274 mGy Post-Procedure Diagnosis Post-operative diagnosis: Congestive heart failure nonischemic cardiomyopathy with ejection fraction 30 percent, acute LV systolic dysfunction Coronary artery disease Hypertension Shortness of breath RUBEN PEREZ MD Oct 04, 2018 08:04
[2018-10-04] MEDS ORDERED: LISI1TAB8 PO (10:06)
[2018-10-04] MEDS ORDERED: AMLO5TAB9 PO (10:06)
--- NOTE | 2018-10-04 10:08 | NUR ---
PATIENT STATES SHE TAKES TWO MEDICATIONS, ONE IN THE AM AND ONE AT NIGHT. SHE DID NOT KNOW THE NAMES OF THEM HOWEVER I CAN SEE WHAT HAS BEEN FILLED RECENTLY ON THE EXT MED HX. SHE KNOWS THEY START WITH AN A AND AN L. SHE DOES NOT TAKE ANYTHING OTC. Addendum: 10/04/18 at 1009 by SHILPA MCCLOUD [facility] BOTH PRESCRIPTIONS WERE FILLED IN MAY FOR 90 DAY SUPPLIES. SHE DOES ADMIT THE AMLODIPINE MAKES HER FEEL FUNNY BUT SHE TRIES TO TAKE THEM EVERYDAY PRESCRIBED.
[2018-10-04] MEDS: AZITHROMYCIN 250 MG TAB (ZITHROMAX) PO SCH (10:32)
[2018-10-04] MEDS: meTOprolol TARTRATE 25 MG (LOPRESSOR) TABLET PO SCH ×2 (10:33→20:24)
[2018-10-04] MEDS: NS IV 1000 ML 1,000 ML IV SCH ×2 (10:33→16:27)
[2018-10-04] MEDS: SACUBITRIL/VALSARTAN 24/26 MG (ENTRESTO) TABLET PO SCH ×2 (10:33→20:23)
--- NOTE | 2018-10-04 10:50 | History & Physical-Hospitalist ---
BERT VERGARA, 10/04/18 1050: History of Present Illness HPI/Chief Complaint CC: chest pain HPI: This is a 67 yo WF who presented to the [facility] 10/03 regarding chest pain. It began 10/02 and has stayed constant throughout. It is left-sided with a bit of pressure noted but not extensively. She feels tired and achy. Denies n/v, tightness, sharpness, radiation, or SOB. Source: patient Date Seen 10/04/18 Time Seen by a Provider: 11:00 Attending Physician Babita Stover DO PCP Self,Be BONNER Referring Physician Date of Admission Oct 03, 2018 at 20:00 Home Medications & Allergies Home Medications Reviewed patient Home Medication Reconciliation performed by pharmacy medication reconciliations coating technician and/or nursing. Patients Allergies have been reviewed. Allergies Allergies Coded Allergies No Known Drug Allergies (Unverified10/03/18) Past Puhyskt-Tmzvij-Fafnce Hx Patient Social History Marrital Status: Employed/Student: employed Alcohol Use: Denies Use Number of Drinks Today: 0 Recreational Drug Use: No Drug of Choice: reports not taking any drugs Smoking Status: Never a Smoker 2nd Hand Smoke Exposure: No Physical Abuse Screen: No Sexual Abuse: No Recent Foreign Travel: No Contact w/other who traveled: No Recent Hopitalizations: No Recent Infectious Disease Expo: No Seasonal Allergies Seasonal Allergies: Yes Past Medical History Surgeries: Tonsillectomy, Tubal Ligation Cardiac: Hypertension History of Blood Disorders: No Adverse Reaction to Blood Malik: No Family History Cardiovascular disease 19 FATHER G8 SISTER Myocardial infarction 19 FATHER Diabetes (mother) Review of Systems Constitutional: No chills, No fever EENTM: No ear discharge, No ear pain, No throat pain Respiratory: cough; No phlegm Cardiovascular: No chest pain, No palpitations Gastrointestinal: No nausea, No vomiting Genitourinary: No dysuria, No frequency Musculoskeletal: muscle weakness Skin: rash (w/in the last week or 2, gone now) Psychiatric/Neurological: No Symptoms Reported All Other Systems Reviewed Negative Unless Noted: Yes Physical Exam Physical Exam Vital Signs Vital Signs - First Documented 10/03/18 10/03/18 18:40 20:55 Temp 99.2 Pulse 92 Resp 21 B/P (MAP) 134/87 (103) Pulse Ox 96 O2 Delivery Room Air Capillary Refill : Less Than 3 Seconds Height, Weight, BMI Height: 5'7.00" Weight: 172lbs. 4.0oz. 78.100538ao; 26.8 BMI Method:Stated General Appearance: WD/WN HEENT: Pharynx Normal, Moist Mucous Membranes Respiratory: Lungs Clear, Normal Breath Sounds Cardiovascular: Regular Rate, Rhythm; No Diastolic Murmur, No Systolic Murmur Gastrointestinal: Normal Bowel Sounds; No Guarding, No Tenderness Extremity: Swelling Neurologic/Psychiatric: Alert, Oriented x3 Skin: Normal Color, Warm/Dry; No Rash Results Results/Procedures Labs Laboratory Tests 10/03/18 18:52 10/04/18 03:10 Patient resulted labs reviewed. D-dimer normal Troponin 0.810 pro-BNP 48749.0 Imaging CXR: R basilar airspace opacity that is likely pneumonia EKG: PVCs, abnormal T waves Procedures Cath performed 10/04 Assessment/Plan Admission Diagnosis NSTEMI, pneumonia Assessment and Plan Assessment: 1. NSTEMI 2. Pneumonia 3.Congestive heart failure 4. Nonischemic cardiomyopathy with ejection fraction 30 percent 5. Acute LV systolic dysfunction 6. Coronary artery disease 7. Hypertension 8. Shortness of breath Plan: 1. Cardiac cath this morning (10/04) 2. Ceftriaxone 1g QD IV 3. Azithromycin 250mg QD PO x4 doses 4. Breathing treatments 5. Consult Dr. Mcdaniel for follow-up 6. Consult Dr. Bojorquez for pneumonia and ICU management 7. Start diuretic 8. Initiate CHF treatment Diagnosis/Problems Diagnosis/Problems (1) NSTEMI (non-ST elevated myocardial infarction) Status: Acute (2) Elevated brain natriuretic peptide (BNP) level Status: Acute (3) Acute electrocardiogram changes Status: Acute (4) CAP (community acquired pneumonia) Status: Acute Clinical Quality Measures DVT/VTE Risk/Contraindication: Risk Factor Score Per Nursin RFS Level Per Nursing on Admit: 4+=Very High BABITA STOVER DO 10/04/182104: History of Present Illness HPI/Chief Complaint Underwent cardiac catheterization today which was negative Dr. Bojorquez was consulted and will be maintained on Rocephin and Zithromax for B/L pneumonia Overall chest pain has revolved and pt is not hypoxia Reviewed labs and meds Source: patient Past Pumccgt-Tclagx-Mrnhrw Hx Past Med/Social Hx: Reviewed Nursing Past Med/Soc Hx, Reviewed and Corrections made Patient Social History Marrital Status: Employed/Student: employed Smoking Status: Never a Smoker Past Medical History Cardiac: Hypertension Family History Cardiovascular disease 19 FATHER G8 SISTER Myocardial infarction 19 FATHER Review of Systems Constitutional: see HPI Respiratory: cough, dyspnea on exertion Cardiovascular: chest pain Physical Exam Physical Exam General Appearance: No Apparent Distress, WD/WN, Chronically ill, Obese Eyes: Right Eye Normal Inspection, Right Eye PERRL HEENT: PERRL/EOMI, Normal ENT Inspection, Pharynx Normal, Moist Mucous Membranes Neck: Full Range of Motion, Normal Inspection, Non Tender Respiratory: Chest Non Tender, No Accessory Muscle Use, No Respiratory Distress, Crackles, Decreased Breath Sounds Cardiovascular: Regular Rate, Rhythm, No Edema, No Gallop, No JVD, No Murmur, Normal Peripheral Pulses Gastrointestinal: Normal Bowel Sounds, No Organomegaly, No Pulsatile Mass, Non Tender, Soft Back: Normal Inspection, No CVA Tenderness, No Vertebral Tenderness Extremity: Normal Capillary Refill, Normal Inspection, Normal Range of Motion, Non Tender, No Calf Tenderness, No Pedal Edema Neurologic/Psychiatric: Alert, Oriented x3, No Motor/Sensory Deficits, Normal Mood/Affect Skin: Normal Color, Warm/Dry Lymphatic: No Adenopathy Assessment/Plan Admission Diagnosis Assessment: NSTEMI with no evidence of stenosis of the coronary vessels on cath today Elevated BNP Pneumonia bilateral Plan: Monitor hypoxia Abx Appreciate lung and heart specialties Admission Status: Inpatient Order (span 2 midnights) Reason for Inpatient Admission: Elevated troponin with pneumonia and eevated BNP new onset CHF Supervisory-Addendum Brief Verification & Attestation Participated in pt care: history, MDM, physical Personally performed: exam, history, MDM, supervision of care Care discussed with: Medical Student Procedures: n/a Results interpretation: Verified all documentation Verification and Attestation of Medical Student E/M Service A medical student performed and documented this service in my presence. I reviewed and verified all information documented by the medical student and made modifications to such information, when appropriate. I personally performed the physical exam and medical decision making. Babita Stover, Oct 04, 2018,21:04 BERT VERGARA, Oct 04, 2018 10:50 BABITA STOVER DO Oct 04, 2018 21:05
--- NOTE | 2018-10-04 10:56 | NUR ---
0815 PT TO ROOM ICU 4 VIA BED ACCOMPANIED BY HEART CENTER STAFF. DRESSING TO RIGHT GROIN D/I, PERIPHERAL PULSES + /+PT DROWSY AWAKENS TO VERBAL STIMULI, PT EDUCATED ON IMPORTANCE OF LEAVING HEAD DOWN AND LAYING FLAT. CALL LIGHT AND OTHER PERSONAL ITEMS WITHIN REACH, NO NEEDS NOTED AT THIS TIME WILL CONTINUE TO MONITOR.
--- NOTE | 2018-10-04 10:56 | NUR ---
0720 PT TO HEART CENTER VIA BED ACCOMPANIED BY HEART CENTER STAFF.
--- NOTE | 2018-10-04 11:15 | NUR ---
Pastoral care visit.
--- NOTE | 2018-10-04 13:37 | NUR ---
PT C/O OF SORENESS IN RIGHT LEG AND GENERALIZED "PAIN ALL OVER", DR STOVER NOTIFIED AND NEW ORDERS RECEIVED.
[2018-10-04] MEDS: HYDROcodone/APAP 5 MG/325 MG (LORTAB) TAB PO PRN ×2 (14:05→20:24)
--- NOTE | 2018-10-04 14:49 | NUR ---
REPORT TAKEN FROM PEPITO ANGELES AT THIS TIME. THIS RN WILL ASSUME CARE OF THIS PATIENT THROUGHOUT THE REMAINDER OF THIS SHIFT.
--- NOTE | 2018-10-04 14:54 | NUR ---
PATIENT TO FLOOR AT THIS TIME VIA W/C ACCOMPANIED BY RADIO INTERFERENCE TROUBLE SHOOTER. THIS RN WILL ASSUME CARE OF THIS PATIENT AT THIS TIME.
--- NOTE | 2018-10-04 16:12 | NUR ---
1450 PT TO ROOM 424 VIA W/C ACCOMPANIED BY MUTUEL CLERK. REPORT GIVEN TO Marin GOMEZ RN.
[2018-10-04] MEDS ORDERED: cefTRIAXone 1,000 MG IV (ROCEPHIN) VIAL ONE (20:10)
[2018-10-04] MEDS ORDERED: WATER (STERILE) FOR INJECTION 10 ML ONE (20:12)
[2018-10-04] MEDS: cefTRIAXone FOR IV USE 1,000 MG in WATER (STERILE) FOR INJECTION 10 ML IV SCH (20:23)
[2018-10-05] VITALS: BP 111/69
[2018-10-05] MEDS: RT-ALBUTEROL/IPRATROPIUM 3 ML (DUONEB) VIAL INH SCH ×4 (02:34→20:23)
[2018-10-05] MEDS: NS IV 1000 ML 1,000 ML IV SCH ×2 (02:44→16:36)
[2018-10-05 04:00] VITALS: BP 128/84
--- NOTE | 2018-10-05 05:09 | NUR ---
RIGHT GROIN SITE REMAINS THE SAME THROUGHOUT THE SHIFT. DRESSING IN PLACE, SOME BRUISING NOTED TO AREA. AREA HAS BEEN SOFT TO PALPATION. PATIENT RATED PAIN TO AREA A 4/10 AT BEGINNING OF SHIFT BUT DENIES PAIN TO AREA AT THIS TIME.
[2018-10-05 06:09] LABS: HEMOGLOBIN 12.6 G/DL (11.5-16.0); MEAN PLATELET VOLUME 11.1 FL (7.4-10.4); RED CELL DISTRIBUTION WIDTH 13.6 % (10.0-14.5); WHITE BLOOD COUNT 9.9 10^3/uL (4.3-11.0)
[2018-10-05 06:42] LABS: ALBUMIN 3.2 GM/DL (3.2-4.5); BILIRUBIN,TOTAL 0.4 MG/DL (0.1-1.0); CALCIUM 8.4 MG/DL (8.5-10.1); CREATININE SERUM 1.06 MG/DL (0.60-1.30); POTASSIUM 4.6 MMOL/L (3.6-5.0); TOTAL PROTEIN 5.2 GM/DL (6.4-8.2)
[2018-10-05 08:00] VITALS: BP 124/83
[2018-10-05] MEDS: meTOprolol TARTRATE 25 MG (LOPRESSOR) TABLET PO SCH ×2 (09:27→20:14)
[2018-10-05] MEDS: SACUBITRIL/VALSARTAN 24/26 MG (ENTRESTO) TABLET PO SCH ×2 (09:31→20:14)
[2018-10-05] MEDS: AZITHROMYCIN 250 MG TAB (ZITHROMAX) PO SCH (09:31)
--- NOTE | 2018-10-05 09:43 | Cardiology Progress Note ---
Subjective Date Seen by Provider: Oct 05, 2018 Time Seen by Provider: 09:31 Subjective/Events-last exam Patient is in bed, no new complaint, no chest pain or shortness of breath, no syncope, feeling better Review of Systems General: No Chills, No Night Sweats, No Fatigue, No Malaise, No Appetite, No Other HEENT: No Head Aches, No Visual Changes, No Eye Pain, No Ear Pain, No Dysphasia, No Sinus Congestion, No Post Nasal Drip, No Sore Throat, No Other Pulmonary: Dyspnea; No Cough, No Pleuritic Chest Pain, No Other Cardiovascular: No: Chest Pain, Palpitations, Orthopnea, Paroxysmal Noc. Dyspnea, Edema, Lt Headedness, Other Focused Exam Lactate Level 10/03/18 20:05: Lactic Acid Level 2.03*H 10/03/18 22:56: Lactic Acid Level 0.99 Objective-Cardiology Exam Last Set of Vital Signs Vital Signs 10/05/18 10/05/18 04:00 07:00 Temp 98.6 Pulse 60 Resp 14 B/P (MAP) 128/84 (99) Pulse Ox 93 O2 Delivery Room Air Capillary Refill : Less Than 3 Seconds I&O Intake and Output 10/05/18 00:00 Intake Total 7220 ml Output Total 2300 ml Balance 4920 ml Intake Oral 1220 ml IV Total 6000 ml Output Urine Total 2300 ml # Voids 1 General: Alert, Oriented X3, Cooperative HEENT: Atraumatic, PERRLA Neck: Supple, No JVD, No Thyromegaly Lungs: Clear to Auscultation, Normal Air Movement Heart: Regular Rate, Normal S1, Normal S2, No Murmurs Abdomen: Normal Bowel Sounds, Soft, No Tenderness, No Hepatosplenomegaly, No Masses Extremities: No Clubbing, No Cyanosis, No Edema, Normal Pulses, No Tenderness/Swelling Skin: No Rashes, No Breakdown, No Significant Lesion Neuro: Normal Gait, Normal Speech, Strength at 5/5 X4 Ext, Normal Tone, Sensation Intact Psych/Mental Status: Mental Status NL, Mood NL Results Lab Laboratory Tests 10/05/18 05:00 10/05/18 05:35 A/P-Cardiology Admission Diagnosis Non-ST elevation myocardial infarction Coronary artery disease Hypertension Family history of heart disease Assessment/Plan Non-ST elevation myocardial infarction, Type II LA, mild coronary artery disease per cardiac catheterization. 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
[2018-10-05] MEDS ORDERED: ASPI-983 PO (09:45)
[2018-10-05] MEDS ORDERED: SACU1TAB PO (09:45)
[2018-10-05] MEDS ORDERED: METO-333 PO (09:45)
[2018-10-05] MEDS ORDERED: DOCUSATE SODIUM 100 MG (COLACE) CAP PO PRN (10:30)
--- NOTE | 2018-10-05 10:37 | Pulmonary Progress Note ---
Subjective Time Seen by a Provider: 10:37 Subjective/Events-last exam Currently on RA with Sp02 98%. Sepsis Event Evaluation Height, Weight, BMI Height: 5'7.00" Weight: 172lbs. 4.0oz. 78.728338rl; 26.8 BMI Method:Stated Focused Exam Lactate Level 10/03/18 20:05: Lactic Acid Level 2.03*H 10/03/18 22:56: Lactic Acid Level 0.99 Exam Exam Vital Signs Date Time Temp Pulse Resp B/P (MAP) Pulse Ox O2 Delivery O2 Flow Rate FiO2 10/05/18 09:51 98 Room Air 10/05/18 08:00 97.0 72 18 124/83 (97) 96 Room Air 10/05/18 07:00 60 10/05/18 04:00 98.6 67 14 128/84 (99) 93 Room Air 10/05/18 03:50 Room Air 10/05/18 02:35 92 Room Air 10/05/18 00:40 75 10/05/18 00:25 Room Air 10/05/18 00:00 98.4 71 18 111/69 (83) 96 Room Air 10/04/18 21:52 91 Room Air 10/04/18 21:49 Room Air 10/04/18 20:49 Room Air 10/04/18 20:00 97.8 64 18 130/84 (99) 99 Room Air 10/04/18 16:00 98 Room Air 10/04/18 15:30 98 Room Air 10/04/18 15:00 99.4 63 20 93/53 (66) 99 Room Air 10/04/18 12:35 96 10/04/18 12:19 66 10/04/18 12:00 65 19 117/80 (92) 99 Room Air 10/04/18 12:00 98.0 10/04/18 10:38 96 Room Air l I & O 10/05/18 07:00 Intake Total 7820 ml Output Total 3125 ml Balance 4695 ml Height & Weight Height: 5'7.00" Weight: 172lbs. 4.0oz. 78.423899re; 26.8 BMI Method:Stated General Appearance: No Apparent Distress, WD/WN, Chronically ill, Obese HEENT: PERRL/EOMI, Normal ENT Inspection, Pharynx Normal, Moist Mucous Membranes Neck: Full Range of Motion, Normal Inspection, Non Tender Respiratory: Chest Non Tender, No Accessory Muscle Use, No Respiratory Distress, Crackles, Decreased Breath Sounds Cardiovascular: Regular Rate, Rhythm, No Edema, No Gallop, No JVD, No Murmur, Normal Peripheral Pulses Capillary Refill: Less Than 3 Seconds Gastrointestinal: normal bowel sounds, non tender Extremity: Normal Capillary Refill, Normal Inspection, Normal Range of Motion, Non Tender, No Calf Tenderness, No Pedal Edema Neurologic/Psychiatric: Alert, Oriented x3, No Motor/Sensory Deficits, Normal Mood/Affect Skin: Normal Color, Warm/Dry Lymphatic: No Adenopathy Results Lab Laboratory Tests 10/03/18 18:52 10/04/18 03:10 10/05/18 05:00 10/05/18 05:35 Assessment/Plan Assessment/Plan RLL pneumonia -Continue Rocephin and azithromycin started 10/04 -Can switch to PO Omnicef for total abx of 5days at discharge. -Cultures pending CHF with EF of 25-30% -Plan is for life vest then discharge tomorrow NSTEMI -Cardiology following CAD PRIYANKA RLOLINS DO Oct 05, 2018 10:37
--- NOTE | 2018-10-05 10:48 | Progress Note - Hospitalist ---
BERT VERGARA, 10/05/18 1048: Subjective HPI/CC On Admission Date Seen by Provider: Oct 05, 2018 Time Seen by Provider: 07:35 Underwent cardiac catheterization today which was negative Dr. Bojorquez was consulted and will be maintained on Rocephin and Zithromax for B/L pneumonia Overall chest pain has revolved and pt is not hypoxia Reviewed labs and meds Subjective/Events-last exam Pt pleasant Has not had a BM since cath procedure Denies generalized pain Denies chest pain No n/v Hoarse from breathing tx Vitals stable Labs: RBC 4.16 Ceftriaxone 1g QD Azithromycin 250mg QD - 2nd dose today Focused Exam Lactate Level 10/03/18 20:05: Lactic Acid Level 2.03*H 10/03/18 22:56: Lactic Acid Level 0.99 Objective Exam Vital Signs Vital Signs Date Time Temp Pulse Resp B/P (MAP) Pulse Ox O2 Delivery O2 Flow Rate FiO2 10/05/18 09:51 98 Room Air 10/05/18 08:00 97.0 72 18 124/83 (97) Capillary Refill : Less Than 3 Seconds Respiratory: Lungs Clear, Normal Breath Sounds Cardiovascular: Regular Rate, Rhythm Results/Procedures Lab Laboratory Tests 10/05/18 05:00 10/05/18 05:35 Patient resulted labs reviewed. Procedures Cath performed 10/04 Assessment/Plan Assessment and Plan Assess & Plan/Chief Complaint Assessment: 1. NSTEMI 2. Pneumonia 3.Congestive heart failure 4. Nonischemic cardiomyopathy with ejection fraction 30 percent 5. Acute LV systolic dysfunction 6. Coronary artery disease 7. Hypertension 8. Shortness of breath Plan: 1. Cardiac cath this morning (10/04) 2. Ceftriaxone 1g QD IV 3. Azithromycin 250mg QD PO x4 doses 4. Breathing treatments 5. Consult Dr. Mcdaniel for follow-up 6. Consult Dr. Bojorquez for pneumonia and ICU management 7. Start diuretic 8. Initiate CHF treatment Diagnosis/Problems Diagnosis/Problems (1) NSTEMI (non-ST elevated myocardial infarction) Status: Acute (2) Elevated brain natriuretic peptide (BNP) level Status: Acute (3) Acute electrocardiogram changes Status: Acute (4) CAP (community acquired pneumonia) Status: Acute Clinical Quality Measures DVT/VTE Risk/Contraindication: Risk Factor Score Per Nursin RFS Level Per Nursing on Admit: 4+=Very High BABITA STOVER DO 10/05/182055: Subjective Subjective/Events-last exam Patient was excited to go home today but cardiology informed me she needed LifeVest prior to discharge in addition she had been on lisinopril and Entresto was started in high risk for angioedema if both are in her system so we will hold discharge until tomorrow Bowels not moving yet Walking around pretty well Does not appear to need physical therapy or occupational therapy Lungs are clear Review of Systems General: Fatigue Objective Exam General Appearance: No Apparent Distress, WD/WN Respiratory: Chest Non Tender, Lungs Clear, Normal Breath Sounds, No Accessory Muscle Use, No Respiratory Distress Cardiovascular: Regular Rate, Rhythm, No Edema, No Gallop, No JVD, No Murmur, Normal Peripheral Pulses Neurologic/Psychiatric: Alert, Oriented x3, No Motor/Sensory Deficits, Normal Mood/Affect Assessment/Plan Assessment and Plan Assess & Plan/Chief Complaint Life vest Continue abx then complete at DC PO formulation Monitor closely Diagnosis/Problems Diagnosis/Problems (1) Broken heart syndrome Status: Acute (2) Cardiomyopathy Status: Acute Qualifiers: Qualified Codes: I42.9 - Cardiomyopathy, unspecified (3) Pneumonia Status: Acute Qualifiers: Qualified Codes: J18.1 - Lobar pneumonia, unspecified organism (4) Volume overload Status: Acute Supervisory-Addendum Brief Verification & Attestation Participated in pt care: history, MDM, physical Personally performed: exam, history, MDM, supervision of care Care discussed with: Medical Student Procedures: n/a Results interpretation: Verified all documentation Verification and Attestation of Medical Student E/M Service A medical student performed and documented this service in my presence. I reviewed and verified all information documented by the medical student and made modifications to such information, when appropriate. I personally performed the physical exam and medical decision making. Babita Stover, Oct 05, 2018,20:55 BERT VERGARA, Oct 05, 2018 10:48 BABITA STOVER DO Oct 05, 2018 20:56
--- NOTE | 2018-10-05 11:09 | NUR ---
CM/SS, respond to consult without specific concern. Interviewed patient who is somewhat hard of hearing. She indicates she ambulates independently, does have a FWW if needed. Does drive. Resides with spouse Maurice Mendez and daughter Jerri Iverson. Maurice works at [employer] television presenter. Patient had fall off of their porch 09/23/18, presented to [facility] ED with right arm injury, splint/sling, and sent home. This interview did not produce any issues. Patient is helping with caregiving for a neighbor some while the routine caregiver is out. Otherwise, she indicates she functions and has no concerns, limits, or needs. EMR reflects she is to get a life vest with tentative discharge planned for tomorrow and patient is aware of her care plan.
[2018-10-05 12:00] VITALS: BP 123/89
[2018-10-05] MEDS: SENNA W/DOCUSATE (SENOKOT S) TABLET PO SCH ×2 (12:16→20:14)
[2018-10-05 16:40] VITALS: BP 135/88
[2018-10-05] MEDS ORDERED: CATHETER FLUSH 10 ML SYR IV PRN (16:45)
[2018-10-05 19:55] VITALS: BP 126/84
[2018-10-05] MEDS ORDERED: WATER (STERILE) FOR INJECTION 10 ML ONE (19:55)
[2018-10-05] MEDS ORDERED: cefTRIAXone 1,000 MG IV (ROCEPHIN) VIAL ONE (19:55)
[2018-10-05] MEDS: CATHETER FLUSH 10 ML SYR IV SCH (20:14)
[2018-10-05] MEDS: cefTRIAXone FOR IV USE 1,000 MG in WATER (STERILE) FOR INJECTION 10 ML IV SCH (20:14)
[2018-10-06] VITALS: BP 108/66
[2018-10-06] MEDS: RT-ALBUTEROL/IPRATROPIUM 3 ML (DUONEB) VIAL INH SCH ×2 (03:28→09:18)
[2018-10-06 03:50] VITALS: BP 110/71
[2018-10-06] MEDS: CATHETER FLUSH 10 ML SYR IV SCH (06:32)
[2018-10-06 08:00] VITALS: BP 136/84
[2018-10-06] MEDS: AZITHROMYCIN 250 MG TAB (ZITHROMAX) PO SCH (08:12)
[2018-10-06] MEDS: meTOprolol TARTRATE 25 MG (LOPRESSOR) TABLET PO SCH (08:12)
[2018-10-06] MEDS: SENNA W/DOCUSATE (SENOKOT S) TABLET PO SCH (08:12)
[2018-10-06] MEDS: SACUBITRIL/VALSARTAN 24/26 MG (ENTRESTO) TABLET PO SCH (08:12)
[2018-10-06] MEDS ORDERED: RT-ALBUTEROL/IPRATROPIUM 3 ML (DUONEB) VIAL INH PRN (09:30)
--- NOTE | 2018-10-06 09:34 | Pulmonary Progress Note ---
Sepsis Event Evaluation Height, Weight, BMI Height: 5'7.00" Weight: 172lbs. 4.0oz. 78.537570cp; 26.8 BMI Method:Stated Focused Exam Lactate Level 10/03/18 20:05: Lactic Acid Level 2.03*H 10/03/18 22:56: Lactic Acid Level 0.99 Exam Exam Vital Signs Date Time Temp Pulse Resp B/P (MAP) Pulse Ox O2 Delivery O2 Flow Rate FiO2 10/06/18 09:18 97 Room Air 10/06/18 09:18 72 97 21 10/06/18 08:00 Room Air 10/06/18 08:00 97.4 73 18 136/84 (101) 97 Room Air 10/06/18 07:49 68 10/06/18 03:50 98.9 67 18 110/71 (84) 97 Room Air 10/06/18 03:31 94 Room Air 10/06/18 01:00 67 10/06/18 00:00 96.8 65 18 108/66 (80) 95 Room Air 10/05/18 20:24 97 Room Air 10/05/18 20:20 Room Air 10/05/18 19:55 98.8 93 20 126/84 (98) 96 Room Air 10/05/18 19:00 83 10/05/18 16:40 99.2 81 20 135/88 (104) 96 Room Air 10/05/18 16:07 96 Room Air 10/05/18 13:00 77 10/05/18 12:00 97.4 69 18 123/89 (100) 96 Room Air 10/05/18 09:51 98 Room Air I & O 10/06/18 07:00 Intake Total 2810 ml Output Total 2300 ml Balance 510 ml Height & Weight Height: 5'7.00" Weight: 172lbs. 4.0oz. 78.063663iy; 26.8 BMI Method:Stated General Appearance: No Apparent Distress, WD/WN HEENT: PERRL/EOMI, Normal ENT Inspection, Pharynx Normal, Moist Mucous Membranes Neck: Full Range of Motion, Normal Inspection, Non Tender Respiratory: Chest Non Tender, Lungs Clear, Normal Breath Sounds, No Accessory Muscle Use, No Respiratory Distress Cardiovascular: Regular Rate, Rhythm, No Edema, No Gallop, No JVD, No Murmur, Normal Peripheral Pulses Capillary Refill: Less Than 3 Seconds Gastrointestinal: normal bowel sounds, non tender Extremity: Normal Capillary Refill, Normal Inspection, Normal Range of Motion, Non Tender, No Calf Tenderness, No Pedal Edema Neurologic/Psychiatric: Alert, Oriented x3, No Motor/Sensory Deficits, Normal Mood/Affect Skin: Normal Color, Warm/Dry Lymphatic: No Adenopathy Results Lab Laboratory Tests 10/05/18 05:00 10/05/18 05:35 Assessment/Plan Assessment/Plan RLL pneumonia -Continue Rocephin and azithromycin started 10/04 -Can switch to PO Omnicef for total abx of 5days at discharge. -Cultures pending CHF with EF of 25-30% - life vest NSTEMI -Cardiology following CAD PRIYANKA ROLLINS DO Oct 06, 2018 09:34
[2018-10-06] MEDS ORDERED: CEFD300C3 PO (11:18)
--- NOTE | 2018-10-06 11:19 | Discharge Summary ---
Diagnosis/Chief Complaint Date of Admission Oct 03, 2018 at 20:00 Date of Discharge Discharge Date: Oct 06, 2018 Admission Diagnosis Assessment: NSTEMI with no evidence of stenosis of the coronary vessels on cath today Elevated BNP Pneumonia bilateral Plan: Monitor hypoxia Abx Appreciate lung and heart specialties Primary Care SelfBe MD Discharge Diagnosis (1) Broken heart syndrome Status: Acute (2) Cardiomyopathy Status: Acute (3) Pneumonia Status: Acute (4) Volume overload Status: Acute Discharge Summary Discharge Physical Exam Allergies: Coded Allergies: No Known Drug Allergies (Unverified , 10/03/18) Vitals & I&Os Vital Signs Date Time Temp Pulse Resp B/P (MAP) Pulse Ox O2 Delivery O2 Flow Rate FiO2 10/06/18 13:11 71 10/06/18 09:18 97 Room Air 10/06/18 09:18 21 10/06/18 08:00 97.4 18 136/84 (101) General Appearance: No Apparent Distress, WD/WN Respiratory: Chest Non Tender, Lungs Clear, Normal Breath Sounds, No Accessory Muscle Use, No Respiratory Distress Cardiovascular: Regular Rate, Rhythm, No Edema, No Gallop, No JVD, No Murmur, Normal Peripheral Pulses Neurologic/Psychiatric: Alert, Oriented x3, No Motor/Sensory Deficits, Normal Mood/Affect Hospital Course Was the Problem List Reviewed?: Yes Hospital course: patient had a complex hospital course after she was admitted for hypoxia, pneumonia, elevated troponin and elevated BNP. Underwent cath with was negative and ECHO revealed EF 25% sp Lifevest was initiated and Entresto for CHF along with abx for pneumonia and O2 and was weaned off O2 and diuresed with good results. Patient will have close f/u with PCP and Cardiology. Labs (last 24 hrs) Laboratory Tests 10/06/18 05:32: B-Type Natriuretic Peptide 292.5H Patient resulted labs reviewed. Pending Labs Discussion & Recommendations Discharge Planning: <30 minutes discharge planning Discharge Home Medications: Active Scripts Active Cefdinir 300 Mg Capsule 300 Mg PO BID Aspirin EC (Aspirin) 81 Mg Tablet.dr 81 Mg PO DAILY Entresto 24 mg-26 mg Tablet (Sacubitril/Valsartan) 1 Each Tablet 1 Tab PO BID Metoprolol Tartrate 25 Mg Tablet 12.5 Mg PO BID Instructions to patient/family Please see electronic discharge instructions given to patient. Clinical Quality Measures DVT/VTE Risk/Contraindication: Risk Factor Score Per Nursin RFS Level Per Nursing on Admit: 4+=Very High Problem Qualifiers (1) Cardiomyopathy: Cardiomyopathy type: unspecified Qualified Codes: I42.9 - Cardiomyopathy, unspecified (2) Pneumonia: Pneumonia type: due to unspecified organism Laterality: bilateral Lung location: lower lobe of lung Qualified Codes: J18.1 - Lobar pneumonia, unspecified organism PEDRO STOVER DO Oct 06, 2018 11:19
--- NOTE | 2018-10-06 13:41 | Cardiology Progress Note ---
Cardiology SOAP Progress Note Subjective: No cardiac complaints. Objective: I&O/Vital Signs 10/06/18 10/06/18 10/06/18 10/06/18 03:31 03:50 07:49 08:00 Temp 98.9 97.4 Pulse 67 68 73 Resp 18 18 B/P (MAP) 110/71 (84) 136/84 (101) Pulse Ox 94 97 97 O2 Delivery Room Air Room Air Room Air 10/06/18 10/06/18 10/06/18 10/06/18 08:00 09:18 09:18 13:11 Pulse 72 71 Pulse Ox 97 97 O2 Delivery Room Air Room Air FiO2 21 10/06/18 00:00 Intake Total 2490 ml Output Total 1650 ml Balance 840 ml Weight (Pounds): 172 Weight (Ounces): 4.0 Weight (Calculated Kilograms): 78.361826 Constitutional: AAO x 3 Respiratory: No accessory muscle use, No respiratory distress, No chest tender, No chest expansion is symmetric; chest is bilaterally symmetric; No lungs clear to percussion; lungs clear to auscultation; No crackles, No rhonchi, No rales, No stridor, No wheezing, No pleural rub, No other Cardiovascular: regular rate-rhythm; No irregularly irregular, No extra beats, No parasternal heave is noted, No JVD, No edema, No bradycardia, No tachycardia, No point of maximal impulse, No cardiac thrills are palpable; S1 and S2; No gallop/S3, No gallop/S4, No diastolic murmur, No systolic murmur, No friction rub, No click, No other Gastrointestional: No tender, No soft, No round, No distended, No pulsatile mass, No organomegaly, No guarding, No rebound, No tenderness, No hernia, No mass, No audible bowel sounds, No abnormal bowel sounds, No abdominal bruits, No spleenomegaly, No other Extremities: No normal range of motion, No non-tender, No normal inspection, No pedal edema, No calf tenderness, No normal capillary refill, No pelvis stable, No calf tenderness, No inflammation, No pedal edema, No slow capillary refill, No swelling, No other, No abrasion, No clubbing, No cyanosis, No ecchymosis, No laceration, No no lower extremity edema bilateral, No significant edema, No tenderness, No wound Neurologic/Psychiatric: no motor/sensory deficits, alert, normal mood/affect, oriented x 3 Skin: No normal color, No warm/dry, No cyanosis, No cool, No diaphoresis, No damp, No ecchymosis, No jaundice, No mottled, No pallor, No rash, No tattoos/piercings, No ulcerations, No rash on exposed areas, No ulcerations on exposed areas, No other Results/Procedures: Labs Laboratory Tests 10/06/18 05:32: B-Type Natriuretic Peptide 292.5H A/P: Assessment/Dx: Non-ST elevation myocardial infarction Coronary artery disease Hypertension Family history of heart disease Plan: Non-ST elevation myocardial infarction, Type II IA, mild coronary artery disease per cardiac catheterization. 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 Lifevest for primary prevention of sudden cardiac . Okay to discharge today and follow up with Dr. Mcdaniel. Hypertension, monitor blood pressure Strong family history of heart disease Thank you for your consultation. Please call me if you have any questions. Lauren Pennington MD, FACP, FACC, FSCAI, FHRS, CCDS Interventional Cardiology Cardiac Electrophysiology Vascular Medicine and Endovascular Interventions Focused Exam Lactate Level 10/03/18 20:05: Lactic Acid Level 2.03*H 10/03/18 22:56: Lactic Acid Level 0.99 Judith PENINNGTON MD Oct 06, 2018 1:40 pm
== END 2018-10-06 14:10 | disposition home or self-care (01) | DRG 280 ==
LOC: EDUNIT# 18:37 → ER FS 18:39 → ICU 20:00 → 4TH 10-04 14:53
PROVIDERS: ADMIT Internal Medicine; ATTEND Internal Medicine
PROC: 4A023N7 Measurement of Cardiac Sampling and Pressure, Left Heart, Percutaneous Approach (ICD-10-PCS; principal; 2018-10-04)
PROC: B2111ZZ Fluoroscopy of Multiple Coronary Arteries using Low Osmolar Contrast (ICD-10-PCS; 2018-10-04)
PROC: B2151ZZ Fluoroscopy of Left Heart using Low Osmolar Contrast (ICD-10-PCS; 2018-10-04)
DX: I21.A1 Myocardial infarction type 2 (principal); I51.81 Takotsubo syndrome; I50.21 Acute systolic (congestive) heart failure; J18.1 Lobar pneumonia, unspecified organism; J81.1 Chronic pulmonary edema; I25.10 Atherosclerotic heart disease of native coronary artery without angina pectoris; I10 Essential (primary) hypertension; D72.829 Elevated white blood cell count, unspecified; M17.10 Unilateral primary osteoarthritis, unspecified knee; M19.031 Primary osteoarthritis, right wrist; M19.032 Primary osteoarthritis, left wrist; Z82.49 Family history of ischemic heart disease and other diseases of the circulatory system
CPT/HCPCS: 36415; 71045; 80053; 81000; 83605; 83690; 83735; 83880; 84443; 84484; 85007; 85025; 85027; 85379; 86618; 86666; 86668; 86757; 87040; 93005; 93306; 93458; 94640; 94760; 96361; 96374; 96375

== ENCOUNTER → 2018-10-16 | Outpatient (CLI) | payer BC, MEDICARE, MEDICAID ==
[~2018-10-16] MED LIST: AMLO5TAB9 PO; ASPI-983 PO; CEFD300C3 PO; LISI1TAB8 PO; METO-333 PO; SACU1TAB PO
--- NOTE | 2018-10-16 14:59 | Diagnostic Imaging Report ---
INDICATION: CAD, CHF, DIASTOLIC DYSFUNCTION, LVH. COMPARISON: 10/03/2018. FINDINGS: Frontal and lateral views of the chest demonstrate normal heart size and pulmonary vascularity. The lungs are clear. There are no signs of infiltrate, pleural effusions or pneumothoraces. The visualized osseous structures show no acute abnormalities. IMPRESSION: 1. No acute process. No signs of infiltrates, effusions or pneumothoraces. Dictated by: Dictated on workstation # [id number]
== END ==
LOC: RAD 14:30
PROVIDERS: ATTEND Internal Medicine Cardiovascular Disease
DX: I25.10 Atherosclerotic heart disease of native coronary artery without angina pectoris (principal); I50.9 Heart failure, unspecified; I51.7 Cardiomegaly
CPT/HCPCS: 71046

== ENCOUNTER 2018-11-11 15:31 | Observation (INO) | payer BC, MEDICARE, MEDICAID ==
[~2018-11-11] VITALS: Ht 170 cm; Wt 74.4 kg
[2018-11-11] VITALS (13 sets, daily range): BP systolic 116–158; BP diastolic 77–106
--- NOTE | 2018-11-11 15:54 | ED General ---
General Chief Complaint: Chest Pain Stated Complaint: CHEST TIGHTNESS,FEVER History of Present Illness Date Seen by Provider: Nov 11, 2018 Time Seen by Provider: 15:49 Initial Comments Patient is a 67-year-old female who comes to the emergency department today complaining of chest pain. She has had some intermittent dizziness and dull sternal chest pain since waking at 7:00 this morning. She has not been able to identify any aggravating or alleviating factors. Pain has not been persistent and has not been radiating. Incidentally, the patient was admitted about 1 month earlier when she was noted to have significant cardiomyopathy with ejection fraction of 25%. She had elevated BNP and troponin at that admission and she did undergo heart catheterization although no significant blockage was reported to have been noted. Suspicion was present for broken heart syndrome as the patient did have a niece who earlier in the year. Patient was placed in a life vest which she is supposed to wear for 3 months and has been wearing. She does not complain of palpitations, diaphoresis, lightheadedness or dyspnea. No worsening orthopnea or dyspnea with exertion. Patient states she has dizziness and feels lightheaded on a daily basis. Today however she felt it was bad enough to cause her difficulty with ambulation which is not normal. Allergies and Home Medications Allergies Coded Allergies: No Known Drug Allergies (Unverified , 10/03/18) Home Medications Aspirin 81 Mg Tablet.dr, 81 MG PO DAILY Prescribed by: RUBEN MCDANIEL on 10/05/1845 Cefdinir 300 Mg Capsule, 300 MG PO BID Prescribed by: PEDRO STOVER on 10/06/18 1118 Metoprolol Tartrate 25 Mg Tablet, 12.5 MG PO BID Prescribed by: RUBEN MCDANIEL on 10/05/1845 Sacubitril/Valsartan 1 Each Tablet, 1 TAB PO BID Prescribed by: RUBEN MCDANIEL on 10/05/1845 Patient Home Medication List Home Medication List Reviewed: Yes Review of Systems Review of Systems Constitutional: dizziness Cardiovascular: see HPI Gastrointestinal: no symptoms reported Musculoskeletal: no symptoms reported Skin: no symptoms reported Psychiatric/Neurological: No Symptoms Reported Hematologic/Lymphatic: No Symptoms Reported All Other Systems Reviewed Negative Unless Noted: Yes Past Fecwbbo-Gjnyhh-Aghumi Hx Patient Social History Drug of Choice: reports not taking any drugs 2nd Hand Smoke Exposure: No Recent Hopitalizations: No Seasonal Allergies Seasonal Allergies: Yes Past Medical History Surgeries: Yes (Tubal ligation) Tonsillectomy, Tubal Ligation Respiratory: No Cardiac: Yes (hypertension) Hypertension Neurological: No Genitourinary: No Gastrointestinal: No Musculoskeletal: Yes (arthritis in knee and wrists) Endocrine: No HEENT: No (Hard of hearing) Cancer: No Psychosocial: No Integumentary: No Blood Disorders: No Adverse Reaction/Blood Tranf: No Family Medical History Cardiovascular disease 19 FATHER G8 SISTER Myocardial infarction 19 FATHER Diabetes Physical Exam Vital Signs Vital Signs - First Documented 11/11/18 15:34 Temp 36.3 Pulse 63 Resp 16 B/P (MAP) 164/88 (113) Pulse Ox 98 Capillary Refill : Height, Weight, BMI Height: 5'7.00" Weight: 172lbs. 4.0oz. 78.098221gh; 26.8 BMI Method:Stated General Appearance: No Apparent Distress, WD/WN HEENT: PERRL/EOMI, Normal ENT Inspection Neck: Full Range of Motion, Non Tender Respiratory: Chest Non Tender, Lungs Clear Cardiovascular: Regular Rate, Rhythm, No Murmur Gastrointestinal: Normal Bowel Sounds, Non Tender, Soft Extremity: Normal Capillary Refill, Normal Range of Motion Neurologic/Psychiatric: Alert, Oriented x3, Normal Mood/Affect Skin: Normal Color, Warm/Dry Progress/Results/Core Measures Suspected Sepsis SIRS Temperature: Pulse: Respiratory Rate: Laboratory Tests 11/11/18 15:46: White Blood Count 8.5 Blood Pressure / Mean: Laboratory Tests 11/11/18 15:46: Creatinine 1.27, Platelet Count 191 Results/Orders Lab Results Laboratory Tests Test 11/11/18 15:46 Range/Units White Blood Count 8.5 4.3-11.0 10^3/uL Red Blood Count 4.75 4.35-5.85 10^6/uL Hemoglobin 14.4 11.5-16.0 G/DL Hematocrit 44 35-52 % Mean Corpuscular Volume 92 80-99 FL Mean Corpuscular Hemoglobin 30 25-34 PG Mean Corpuscular Hemoglobin Concent 33 32-36 G/DL Red Cell Distribution Width 12.8 10.0-14.5 % Platelet Count 191 130-400 10^3/uL Mean Platelet Volume 10.5 H 7.4-10.4 FL Neutrophils (%) (Auto) 71 42-75 % Lymphocytes (%) (Auto) 22 12-44 % Monocytes (%) (Auto) 5 0-12 % Eosinophils (%) (Auto) 2 0-10 % Basophils (%) (Auto) 1 0-10 % Neutrophils # (Auto) 6.0 1.8-7.8 X 10^3 Lymphocytes # (Auto) 1.9 1.0-4.0 X 10^3 Monocytes # (Auto) 0.5 0.0-1.0 X 10^3 Eosinophils # (Auto) 0.1 0.0-0.3 10^3/uL Basophils # (Auto) 0.0 0.0-0.1 10^3/uL Sodium Level 143 135-145 MMOL/L Potassium Level 3.8 3.6-5.0 MMOL/L Chloride Level 106 98-107 MMOL/L Carbon Dioxide Level 28 21-32 MMOL/L Anion Gap 9 5-14 MMOL/L Blood Urea Nitrogen 17 7-18 MG/DL Creatinine 1.27 0.60-1.30 MG/DL Estimat Glomerular Filtration Rate 42 BUN/Creatinine Ratio 13 Glucose Level 140 H 70-105 MG/DL Calcium Level 9.4 8.5-10.1 MG/DL Troponin I < 0.30 <0.30 NG/ML Pro-B-Type Natriuretic Peptide 885.4 H <75.0 PG/ML My Orders Orders - LAURA ARNOLD DO Ed Iv/Invasive Line Start (11/11/18 15:35) Cbc With Automated Diff (11/11/18 15:35) Troponin I (11/11/18 15:35) Basic Metabolic Panel (11/11/18 15:35) Ekg Tracing (11/11/18 15:35) Chest 1 View Ap/Pa Only (11/11/18 15:43) Probnp Fs (11/11/18 16:37) Furosemide Injection (Lasix Injection) (11/11/18 17:00) Vital Signs/I&O 11/11/18 11/11/18 15:34 17:00 Temp 36.3 Pulse 63 62 Resp 16 13 B/P (MAP) 164/88 (113) 151/77 Pulse Ox 98 98 Capillary Refill : Progress Note : Time: 15:53 Progress Note Patient is seen and examined. The patient does not have chest pain at the moment. She states the pain stopped about one hour prior to presentation. I did review patient's medical record. She does have a recent history of cardiomyopathy discussed above. This was a new diagnosis for her. She has been wearing her life vest at home. Today, we will do chest x-ray, labs. EKG is completed and does not reveal any acute ST changes although there are frequent PVCs noted. 16:45: All results are reviewed. BNP is still pending. Chest x-ray are revealing for mild pulmonary vascular congestion although the patient has no clinical signs of fluid overload. Troponin is not elevated today but given the patient's recent diagnosis and treatment, would prefer she be observed on te lemetry overnight. I spoke to Dr. Stover about the patient who was agreeable to accept for observation admission. We did verify that availability at [facility] and [place]. Also spoke to the patient's primary billing and accounting staff assistant, Dr. Mcdaniel, who recommended some Lasix and will consult. The patient was given Lasix in the emergency room here. Overall, her emergency department course was unremarkable. She did not have active chest pain during. 17:50: Transferred for inpatient admission to [facility] in [place]. ECG Initial ECG Impression Date: Nov 11, 2018 Initial ECG Impression Time: 15:35 Initial ECG Rate: 60 Initial ECG Rhythm: PVC Initial ECG Impression: Normal Departure Communication (Admissions) Time/Spoke to Admitting Phy: 16:45 Dr. Stover Time/Spoke to Consulting Phy: 16:50 Dr. Mcdaniel Impression Primary Impression: Chest pain Disposition: ADMITTED INPATIENT Condition: Stable Admissions Decision to Admit Reason: Admit from ER (General) Decision to Admit/Date: Nov 11, 2018 Time/Decision to Admit Time: 16:30 Transfer Time Spoke to Accepting Phy: 16:[address] Stover Method of Transfer: EMS Departure-Patient Inst. Referrals: SELF,DAVID BONNER (PCP/Family) Primary Care Physician LAURA ARNOLD DO Nov 11, 2018 15:53
[2018-11-11 15:55] LABS: BASOPHILS % (AUTO) 1 % (0-10); EOSINOPHILS % (AUTO) 2 % (0-10); HEMATOCRIT 44 % (35-52); HEMOGLOBIN 14.4 G/DL (11.5-16.0); LYMPHOCYTES % (AUTO) 22 % (12-44); MEAN CORPUSCULAR HEMOGLOBIN 30 PG (25-34); MEAN CORPUSCULAR HGB CONC 33 G/DL (32-36); MEAN CORPUSCULAR VOLUME 92 FL (80-99); MEAN PLATELET VOLUME 10.5 FL (7.4-10.4); MONOCYTES % (AUTO) 5 % (0-12); NEUTROPHILS % (AUTO) 71 % (42-75); PLATELET COUNT 191 10^3/uL (130-400); RED CELL DISTRIBUTION WIDTH 12.8 % (10.0-14.5); WHITE BLOOD COUNT 8.5 10^3/uL (4.3-11.0)
[2018-11-11 15:56] LABS: EOSINOPHILS # (AUTO) 0.1 10^3/uL (0.0-0.3); LYMPHOCYTES # (AUTO) 1.9 X 10^3 (1.0-4.0); MONOCYTES # (AUTO) 0.5 X 10^3 (0.0-1.0)
[2018-11-11 16:16] LABS: BUN/CREATININE RATIO 13; CALCIUM 9.4 MG/DL (8.5-10.1); CARBON DIOXIDE 28 MMOL/L (21-32); CHLORIDE 106 MMOL/L (98-107); CREATININE SERUM 1.27 MG/DL (0.60-1.30); GFR ESTIMATED 42; GLUCOSE 140 MG/DL (70-105); POTASSIUM 3.8 MMOL/L (3.6-5.0); SODIUM 143 MMOL/L (135-145)
--- NOTE | 2018-11-11 16:18 | Diagnostic Imaging Report ---
INDICATION: Chest tightness. COMPARISON: October 16, 2018. TECHNIQUE: Single frontal radiograph of the chest dated November 11, 2018. FINDINGS: The cardiac silhouette is upper limits of normal in size. Mild central pulmonary vascular congestion. Mild right basilar opacities have developed. The left lung appears clear. No significant pleural effusion. No pneumothorax. No acute osseous abnormality. IMPRESSION: Mild right basilar atelectasis and/or pneumonitis. Mild central pulmonary vascular congestion without interstitial edema or pleural effusion. Dictated by: Dictated on workstation # [id number]
[2018-11-11] MEDS ORDERED: FUROSEMIDE 40 MG/4 ML INJ (LASIX) IVP ONE (17:00)
--- NOTE | 2018-11-11 18:35 | NUR ---
BUDDY HORN admitted to room CU12-1, with an admitting diagnosis of chest pain, on 11/11/18 from [place] via cart, accompanied by ems.BUDDY HORN introduced to surroundings, call light, bed controls, phone, TV, temperature control, lights, meal times, smoking policy, visitor policy, side rail policy, bathrooms and showers. Patient Rights given to patient in the handbook. BUDDY HORN verbalizes understanding that [facility] is not responsible for the loss or damage to any personal effects or valuables that are kept in the patients posession during their hospitalization. The following Patient Care Plans were discussed with the pt: Discharge Planning. BUDDY HORN verbalizes understanding of Interdisciplinary Patient Education. Patient and/or family were informed about the Rapid Response Team and its purpose.
[2018-11-11] MEDS ORDERED: ONDANSETRON 4 MG (ZOFRAN) ORAL DISSOLVE TAB PO PRN (20:00)
[2018-11-11] MEDS ORDERED: ONDANSETRON 4 MG/2 ML (SDV) Z0FRAN IVP PRN (20:00)
[2018-11-11] MEDS ORDERED: diphenhydrAMINE 25 MG TAB (BENADRYL) PO PRN (20:00)
[2018-11-11] MEDS ORDERED: DOCUSATE SODIUM 100 MG (COLACE) CAP PO PRN (20:00)
[2018-11-11] MEDS ORDERED: MELATONIN 3 MG TABLET PO PRN (20:00)
[2018-11-11] MEDS ORDERED: ALPRAZolam 0.25 MG (XANAX) TAB PO PRN (20:00)
[2018-11-11] MEDS ORDERED: fentaNYL INJECTION 100 MCG/2 ML AMP IVP PRN (20:00)
[2018-11-11] MEDS ORDERED: LOPERAMIDE 2 MG (IMODIUM) TABLET PO PRN (20:00)
[2018-11-11] MEDS ORDERED: CALCIUM CARBONATE 500 MG (TUMS) TAB.CHEW PO PRN (20:00)
[2018-11-11] MEDS ORDERED: HYDROcodone/APAP 5 MG/325 MG (LORTAB) TAB PO PRN (20:00)
[2018-11-11] MEDS ORDERED: ACETAMINOPHEN 500 MG TAB (TYLENOL) PO PRN (20:00)
[2018-11-11] MEDS: SENNA W/DOCUSATE (SENOKOT S) TABLET PO SCH (21:33)
[2018-11-12] VITALS: BP 137/88
[2018-11-12 03:26] LABS: BASOPHILS % (AUTO) 0 % (0-10); EOSINOPHILS # (AUTO) 0.1 10^3/uL (0.0-0.3); EOSINOPHILS % (AUTO) 2 % (0-10); HEMATOCRIT 43 % (35-52); HEMOGLOBIN 14.3 G/DL (11.5-16.0); LYMPHOCYTES # (AUTO) 2.3 X 10^3 (1.0-4.0); LYMPHOCYTES % (AUTO) 25 % (12-44); MEAN CORPUSCULAR HEMOGLOBIN 31 PG (25-34); MEAN CORPUSCULAR HGB CONC 33 G/DL (32-36); MEAN CORPUSCULAR VOLUME 92 FL (80-99); MEAN PLATELET VOLUME 10.4 FL (7.4-10.4); MONOCYTES # (AUTO) 0.6 X 10^3 (0.0-1.0); MONOCYTES % (AUTO) 7 % (0-12); NEUTROPHILS # (AUTO) 6.2 X 10^3 (1.8-7.8); NEUTROPHILS % (AUTO) 67 % (42-75); PLATELET COUNT 183 10^3/uL (130-400); RED CELL DISTRIBUTION WIDTH 13.2 % (10.0-14.5); WHITE BLOOD COUNT 9.2 10^3/uL (4.3-11.0)
[2018-11-12 03:56] LABS: ALBUMIN 3.7 GM/DL (3.2-4.5); BILIRUBIN,TOTAL 0.5 MG/DL (0.1-1.0); CALCIUM 9.3 MG/DL (8.5-10.1); CREATININE SERUM 1.32 MG/DL (0.60-1.30); POTASSIUM 3.9 MMOL/L (3.6-5.0); TOTAL PROTEIN 6.4 GM/DL (6.4-8.2)
[2018-11-12 04:00] VITALS: BP 124/61
--- NOTE | 2018-11-12 07:33 | History & Physical-Hospitalist ---
SHAHBAZ WATTS [facility] 11/12/18 0733: History of Present Illness HPI/Chief Complaint Pt is a 67 y.o F with hx of non-ischemic cardiomyopathy, CHF, and HTN who presented to the ED yesterday with dull sternal chest pain. State she woke up around 0700 yesterday with CP and felt tired so she reported to the ED. She had elevated preBNP while at ED and was transferred to [facility] for observation. Per EMR notes, pt did not have palpitations, diaphoresis, lightheadedness or dyspnea, no worsening orthopnea or dyspnea with exertion at the time. Today she denies the aforementioned sx as well. Pt was admitted a month ago and was noted for cardiomyopathy with EF of 25% with elevated Troponin and BNP. Heart cath at the time was negative for significant blockage. Pt was dx with takotsubo cardiomyopathy. Patient was placed in a life vest which she is supposed to wear for 3 months and has been wearing. Hx in the past year is notable for of her sister "from renal failure" and a 37 wk still born grand daughter. 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 Pt denies recent unintentional wt gain or loss, decreased interest in activities she previously enjoyed, disinterest in interacting with others, and abnormal sleep patterns. Pt reports hx of frequent GUEVARA which based on her description sound like tension headaches; states she is able to control them with over the counter painkillers. Source: patient, RN notes reviewed, EMS notes reviewed Exam Limitations: no limitations Date Seen 11/12/18 Time Seen by a Provider: 08:00 Attending Physician Babita Stover DO PCP Self,Be BONNER Referring Physician Date of Admission Nov 11, 2018 at 16:58 Home Medications & Allergies Home Medications Reviewed patient Home Medication Reconciliation performed by pharmacy medication reconciliations apprentice instrument technician and/or nursing. Patients Allergies have been reviewed. Aspirin 81 Mg Tablet., 81 MG PO DAILY Prescribed by: RUBEN MCDANIEL on 10/05/18 0945 Cefdinir 300 Mg Capsule, 300 MG PO BID Prescribed by: BABITA STOVER on 10/06/18 1118 Metoprolol Tartrate 25 Mg Tablet, 12.5 MG PO BID Prescribed by: RUBEN MCDANIEL on 10/05/18 0945 Sacubitril/Valsartan 1 Each Tablet, 1 TAB PO BID Prescribed by: RUBEN MCDANIEL on 10/05/18 0945 Allergies Allergies Coded Allergies No Known Drug Allergies (Unverified10/03/18) Past Uzavbjm-Mvcxnf-Wjzdym Hx Past Med/Social Hx: Reviewed Nursing Past Med/Soc Hx, Reviewed and Corrections made Patient Social History Marrital Status: Number of Children: 3 (3 daughters) Number of living children: 3 Living Status: lives at home with Employed/Student: unemployed Alcohol Use: Occasionally Uses Recreational Drug Use: No Drug of Choice: reports not taking any drugs Smoking Status: Never a Smoker 2nd Hand Smoke Exposure: No Recent Foreign Travel: No Contact w/other who traveled: No Recent Hopitalizations: Yes Recent Infectious Disease Expo: No Immunizations Up To Date Tetanus Booster (TDap): Unknown Seasonal Allergies Seasonal Allergies: Yes Past Medical History Surgeries: Cardiac, Tonsillectomy, Tubal Ligation Currently Using CPAP: No Currently Using BIPAP: No Cardiac: Cardiomyopathy (takotsubo cardiomyopathy, CHF), Hypertension : No Reproductive: No Hearing Impairment: Hard of Hearing History of Blood Disorders: No Adverse Reaction to Blood Malik: No Family History Cardiovascular disease 19 FATHER G8 SISTER Diabetes mellitus 19 FATHER G8 SISTER Myocardial infarction 19 FATHER Diabetes Review of Systems Constitutional: see HPI, dizziness; No weight gain, No weight loss EENTM: hearing loss (chronic) Respiratory: No cough, No dyspnea on exertion, No short of breath Cardiovascular: No chest pain, No edema, No palpitations, No syncope Gastrointestinal: No abdominal pain, No constipation, No diarrhea, No nausea, No vomiting Musculoskeletal: no symptoms reported Psychiatric/Neurological: Denies Anxiety, Denies Depressed Physical Exam Physical Exam Vital Signs Vital Signs - First Documented 11/11/18 11/11/18 15:34 18:41 Temp 36.3 Pulse 63 Resp 16 B/P (MAP) 164/88 (113) Pulse Ox 98 O2 Delivery Room Air Capillary Refill : Less Than 3 Seconds Height, Weight, BMI Height: 5'7.00" Weight: 164lbs. 4.0oz. 74.929153ox; 26.98 BMI Method:Stated General Appearance: No Apparent Distress, WD/WN, Other (Well groomed, pleasant White female, good eye contact, poor historian, tearfull when talking about sister and grand child) Eyes: Bilateral Eye Normal Inspection, Bilateral Eye PERRL HEENT: PERRL/EOMI, Normal ENT Inspection, Moist Mucous Membranes Neck: Normal Inspection Respiratory: Chest Non Tender, Lungs Clear, Normal Breath Sounds, No Accessory Muscle Use, No Respiratory Distress Cardiovascular: Regular Rate, Rhythm, No Edema, No Gallop, No JVD, No Murmur, Normal Peripheral Pulses Back: Normal Inspection, No Vertebral Tenderness Extremity: Normal Capillary Refill, Normal Inspection Neurologic/Psychiatric: Alert, Oriented x3, No Motor/Sensory Deficits Skin: Normal Color, Warm/Dry Results Results/Procedures Labs Laboratory Tests 11/11/18 15:46 11/12/18 03:17 Patient resulted labs reviewed. Assessment/Plan Admission Diagnosis Admission Status: Observation Assessment and Plan -Chest pain Resolved -Evidence of ischemia in all leads and probable L atrial abnormality noted on EKG this AM -Normal troponin w/ Mildly elevated BNP routine F/u with cardiology -Hyperglycemia Monitor at home low carb diet -Tension GUEVARA Maintain with over the counter meds -HTN Controlled on meds -Hx of takotsubo cardiomyopathy with normal Echo today Recovered -Strong family hx of DM and heart Dz Plan: -Continue home meds -D/C life vest per Dr. Mcdaniel -Discharge w/ f/u with PCP Clinical Quality Measures DVT/VTE Risk/Contraindication: Risk Factor Score Per Nursin RFS Level Per Nursing on Admit: 2=Moderate BABITA STOVER DO 11/12/182021: History of Present Illness HPI/Chief Complaint CC: SOB and weakness HPI: This is a 67yoWF known to me from broken heart syndrome who I saw a couple of months ago from Dr. Shah who presented to the [facility] ER with complaints of weakness and SOB found to be in mild heart failure and considering her significant cardiac hx she was placed in observation and Dr. Mcdaniel was consulted, pt was monitored closely after Lasix was given, and pt stabilized through the night. Dr. Mcdaniel evaluated the pt finding her ready for DC with close follow up with PCP and her echocardiogram showed normal ejection fraction which is great news and she will remain on her Entresto, and Beta jailene as an outpatient. Past Huztdjb-Viustq-Mphnqn Hx Family History Cardiovascular disease 19 FATHER G8 SISTER Diabetes mellitus 19 FATHER G8 SISTER Myocardial infarction 19 FATHER Physical Exam Physical Exam General Appearance: No Apparent Distress Respiratory: Lungs Clear Cardiovascular: Regular Rate, Rhythm Neurologic/Psychiatric: Alert, Oriented x3, No Motor/Sensory Deficits, Normal Mood/Affect Assessment/Plan Admission Diagnosis Assessment: Dyspnea CM HTN Plan: DC home Admission Status: Observation Diagnosis/Problems Diagnosis/Problems (1) Volume overload Status: Acute (2) Cardiomyopathy Status: Acute (3) Broken heart syndrome Status: Acute Supervisory-Addendum Brief Verification & Attestation Participated in pt care: history, MDM, physical Personally performed: exam, history, MDM, supervision of care Care discussed with: Medical Student Procedures: n/a Results interpretation: Verified all documentation Verification and Attestation of Medical Student E/M Service A medical student performed and documented this service in my presence. I reviewed and verified all information documented by the medical student and made modifications to such information, when appropriate. I personally performed the physical exam and medical decision making. Babita Stover, Nov 12, 2018,20:22 [facility] Nov 12, 2018 07:33 BABITA STOVER DO Nov 12, 2018 20:22
[2018-11-12 08:00] VITALS: BP 122/77
[2018-11-12] MEDS: SENNA W/DOCUSATE (SENOKOT S) TABLET PO SCH (09:00)
--- NOTE | 2018-11-12 09:00 | Consultation-Cardiology ---
HPI-Cardiology Cardiology Consultation Date of Consultation 11/12/18 Date of Admission Time Seen by Provider: 08:58 Indication: chest pain HPI 67-year-old lady with history of nonischemic cardiomyopathy, apical akinesia, start her on aggressive medical therapy and has been compliant with her medication. Started to have some chest pain and headache, came into the emergency room and was noted to have elevated proBNP. Currently laying down in bed feeling better, denied any active pain. No palpitation. No syncope or near syncopal episodes Home Medications & Allergies Allergies: Coded Allergies: No Known Drug Allergies (Unverified , 10/03/18) Home Medication List Reviewed: Yes AML-Nyorvw-Hrslul Hx Patient Social History Marital Status: Alcohol Use: Denies Use Recreational Drug Use: No Drug of Choice: reports not taking any drugs Smoking Status: Never a Smoker 2nd Hand Smoke Exposure: No Recent Foreign Travel: No Recent Infectious Disease Expo: No Recent Hopitalizations: No Past Medical History Discussed below Family Medical History Significant Family History: Diabetes Family History: Cardiovascular disease 19 FATHER G8 SISTER Myocardial infarction 19 FATHER Review of Systems-General Review of Systems Constitutional: dizziness, malaise EENTM: see HPI, no symptoms reported Respiratory: see HPI; No cough; dyspnea on exertion; No hemoptysis, No orthopnea, No phlegm, No short of breath, No stridor, No wheezing, No other Cardiovascular: see HPI, chest pain; No edema, No Hx of Intervention, No palpitations, No syncope, No vascular heart diseas, No other Gastrointestinal: no symptoms reported, see HPI Genitourinary: no symptoms reported, see HPI Musculoskeletal: no symptoms reported, see HPI Skin: no symptoms reported, see HPI Psychiatric/Neurological: No Symptoms Reported, See HPI All Other Systems Reviewed Negative Unless Noted: Yes Reviewed Test Results Reviewed Test Results Lab Laboratory Tests Test 11/11/18 15:46 11/11/18 19:00 11/12/18 00:45 11/12/18 03:17 Range/Units White Blood Count 8.5 9.2 4.3-11.0 10^3/uL Red Blood Count 4.75 4.69 4.35-5.85 10^6/uL Hemoglobin 14.4 14.3 11.5-16.0 G/DL Hematocrit 44 43 35-52 % Mean Corpuscular Volume 92 92 80-99 FL Mean Corpuscular Hemoglobin 30 31 25-34 PG Mean Corpuscular Hemoglobin Concent 33 33 32-36 G/DL Red Cell Distribution Width 12.8 13.2 10.0-14.5 % Platelet Count 191 183 130-400 10^3/uL Mean Platelet Volume 10.5 H 10.4 7.4-10.4 FL Neutrophils (%) (Auto) 71 67 42-75 % Lymphocytes (%) (Auto) 22 25 12-44 % Monocytes (%) (Auto) 5 7 0-12 % Eosinophils (%) (Auto) 2 2 0-10 % Basophils (%) (Auto) 1 0 0-10 % Neutrophils # (Auto) 6.0 6.2 1.8-7.8 X 10^3 Lymphocytes # (Auto) 1.9 2.3 1.0-4.0 X 10^3 Monocytes # (Auto) 0.5 0.6 0.0-1.0 X 10^3 Eosinophils # (Auto) 0.1 0.1 0.0-0.3 10^3/uL Basophils # (Auto) 0.0 0.0 0.0-0.1 10^3/uL Sodium Level 143 142 135-145 MMOL/L Potassium Level 3.8 3.9 3.6-5.0 MMOL/L Chloride Level 106 105 98-107 MMOL/L Carbon Dioxide Level 28 26 21-32 MMOL/L Anion Gap 9 11 5-14 MMOL/L Blood Urea Nitrogen 17 18 7-18 MG/DL Creatinine 1.27 1.32 H 0.60-1.30 MG/DL Estimat Glomerular Filtration Rate 42 40 BUN/Creatinine Ratio 13 14 Glucose Level 140 H 130 H 70-105 MG/DL Calcium Level 9.4 9.3 8.5-10.1 MG/DL Troponin I < 0.30 < 0.028 < 0.028 <0.028 NG/ML Pro-B-Type Natriuretic Peptide 885.4 H <75.0 PG/ML Corrected Calcium 9.5 8.5-10.1 MG/DL Total Bilirubin 0.5 0.1-1.0 MG/DL Aspartate Amino Transf (AST/SGOT) 17 5-34 U/L Alanine Aminotransferase (ALT/SGPT) 16 0-55 U/L Alkaline Phosphatase 84 40-136 U/L B-Type Natriuretic Peptide 103.9 H <100.0 PG/ML Total Protein 6.4 6.4-8.2 GM/DL Albumin 3.7 3.2-4.5 GM/DL Physical Exam Physical Exam Vital Signs Vital Signs - First Documented 11/11/18 11/11/18 15:34 18:41 Temp 36.3 Pulse 63 Resp 16 B/P (MAP) 164/88 (113) Pulse Ox 98 O2 Delivery Room Air Capillary Refill : Less Than 3 Seconds Height, Weight, BMI Height: 5'7.00" Weight: 164lbs. 4.0oz. 74.256109ns; 26.98 BMI Method:Stated General Appearance: No Apparent Distress, WD/WN HEENT: PERRL/EOMI, Normal ENT Inspection Neck: Full Range of Motion, Non Tender Respiratory: Chest Non Tender, Lungs Clear Cardiovascular: Regular Rate, Rhythm, No Murmur Gastrointestinal: Normal Bowel Sounds, Non Tender, Soft Extremity: Normal Capillary Refill, Normal Range of Motion Neurologic/Psychiatric: Alert, Oriented x3, Normal Mood/Affect Skin: Normal Color, Warm/Dry A/P-Cardiology Admission Diagnosis Chest pain Headache Congestive heart failure, chronic compensated left ventricular systolic dysfunction, nonischemic cardiomyopathy Hypertension Assessment/Plan Chest pain nonspecific etiology, atypical in presentation, resolved Headache, reporting improvement. History of congestive heart failure with chronic left ventricular systolic dysfunction, nonischemic cardiomyopathy with akinesia of the apex, improved, repeat echocardiogram done today showing normal left ventricular function. Hypertension, controlled, continue on current medication Strong family history of heart disease Okay for discharge from cardiology standpoint, continue on current home medication, discontinue LifeVest and follow-up as an outpatient Clinical Quality Measures DVT/VTE Risk/Contraindication: Risk Factor Score Per Nursin RFS Level Per Nursing on Admit: 2=Moderate RUBEN PEREZ MD Nov 12, 2018 09:00
--- NOTE | 2018-11-12 10:50 | NUR ---
Pt ambulated down to front entrance after refusing wheelchair for transport. All discharge information given to patient and all personal belongings with patient when leaving. F/U appointment with Dr. Shah given to patient.
== END 2018-11-12 10:20 | disposition home or self-care (01) ==
LOC: EDUNIT# 15:31 → ER FS 15:32 → ICU 16:58 → UNDOADMOB 16:58 → ICU 18:23 → UNDODISOB 11-12 10:50
PROVIDERS: ADMIT Internal Medicine; ATTEND Internal Medicine
DX: R07.9 Chest pain, unspecified (principal); I42.8 Other cardiomyopathies; R29.898 Other symptoms and signs involving the musculoskeletal system; I11.0 Hypertensive heart disease with heart failure; I50.22 Chronic systolic (congestive) heart failure; Z79.82 Long term (current) use of aspirin; Z79.899 Other long term (current) drug therapy; Z82.49 Family history of ischemic heart disease and other diseases of the circulatory system; Z83.3 Family history of diabetes mellitus
CPT/HCPCS: 36415; 71045; 80048; 80053; 83880; 84484; 85025; 93005; 93306; 96374

== ENCOUNTER → 2019-05-06 | Outpatient (CLI) | payer BC, MEDICAID ==
[~2019-05-06] MED LIST changes: +LISI1TAB25 PO; -LISI1TAB8 PO; -SACU1TAB PO; +SACU1TAB2 PO
--- NOTE | 2019-05-06 09:46 | Diagnostic Imaging Report ---
HISTORY: Right toe pain TECHNIQUE: 2 views of the right toes COMPARISON: 04/24/2018 FINDINGS: The previously seen fracture of the right great toe distal phalanx appears to be healed with no displacement or residual fracture line evident. No cortical erosions are seen. No acute fracture is identified. There is mild hallux valgus. The 4th metatarsal appears elongated, likely congenital. No unexpected radiopaque foreign bodies are seen. IMPRESSION: No acute osseous abnormality is seen in the right toes. Dictated by: Dictated on workstation # [id number]
== END ==
LOC: RAD FS 08:46
PROVIDERS: ATTEND Nurse Practitioner
DX: M79.674 Pain in right toe(s) (principal)
CPT/HCPCS: 73660

== ENCOUNTER → 2019-12-05 | Outpatient (CLI) | payer MEDICARE, BC ==
[~2019-12-05] MED LIST changes: +ASPI-1238 PO; -ASPI-983 PO; -LISI1TAB25 PO; +LISI1TAB46 PO
== END ==
LOC: CARD 12:48
PROVIDERS: ATTEND Physician Assistant
DX: I25.10 Atherosclerotic heart disease of native coronary artery without angina pectoris (principal); I50.9 Heart failure, unspecified; I51.9 Heart disease, unspecified; I51.7 Cardiomegaly
CPT/HCPCS: 93306

== ENCOUNTER → 2021-04-26 | Outpatient (CLI) | payer MEDICARE ==
[~2021-04-26] MED LIST changes: +AMLO-250 PO; -AMLO5TAB9 PO
--- NOTE | 2021-04-26 13:42 | Diagnostic Imaging Report ---
INDICATION: Left elbow pain 2 views of the left elbow show no fracture, dislocation or other acute abnormalities. IMPRESSION: Negative left elbow Dictated by: Dictated on workstation # [id number]
--- NOTE | 2021-04-26 13:46 | Diagnostic Imaging Report ---
INDICATION: Left forearm pain 2 views of left forearm show an old ununited fracture of the ulnar styloid of the wrist. There is no acute fracture or dislocation. 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 No acute abnormality seen. Dictated by: Dictated on workstation # [id number]
== END ==
LOC: RAD FS 13:10
PROVIDERS: ATTEND Nurse Practitioner
DX: M79.632 Pain in left forearm (principal); M25.522 Pain in left elbow; Z87.81 Personal history of (healed) traumatic fracture
CPT/HCPCS: 73080

== ENCOUNTER 2021-05-23 20:01 | Emergency (ER) | payer MEDICARE ==
[2021-05-23 20:11] VITALS: BP 195/110
--- NOTE | 2021-05-23 20:15 | ED Upper Extremity ---
General Stated Complaint: LEFT WRIST INJURY Source: patient Exam Limitations: other (hard of hearing) History of Present Illness Date Seen by Provider: May 23, 2021 Time Seen by Provider: 20:04 Initial Comments 70-year-old female presenting with complaints of left forearm pain and swelling. She had fallen yesterday when walking on an uneven road. She denies hitting her head or losing consciousness. She denies other injuries. She had taken some ibuprofen yesterday but nothing for pain today. She has increased pain when she moves her forearm and wrist. She denies any numbness or tingling in her hand. She has full range of motion of her fingers and hand. She denies previous injury to the forearm or wrist. Onset: yesterday Severity: moderate Pain/Injury Location: left forearm Method of Injury: fell Modifying Factors: Worse With Movement Allergies and Home Medications Allergies Coded Allergies: No Known Drug Allergies (Unverified , 10/03/18) Patient Home Medication List Home Medication List Reviewed: Yes Aspirin (Aspirin EC) 81 Mg Tablet.dr, 81 MG PO DAILY Prescribed by: RUBEN PEREZ on 10/05/18 0945 Metoprolol Tartrate (Metoprolol Tartrate) 25 Mg Tablet, 12.5 MG PO BID Prescribed by: RUBEN PEREZ on 10/05/18 0945 Sacubitril/Valsartan (Entresto 24 mg-26 mg Tablet) 1 Each Tablet, 1 TAB PO BID Prescribed by: RUBEN PEREZ on 10/05/18 0945 Review of Systems Constitutional: No chills, No fever EENTM: no symptoms reported Respiratory: no symptoms reported Cardiovascular: no symptoms reported Gastrointestinal: no symptoms reported Genitourinary: no symptoms reported Musculoskeletal: see HPI Skin: No change in color Psychiatric/Neurological: Denies Numbness, Denies Paresthesia Past Dwgscnm-Lvgqvx-Mfqpic Hx Patient Social History Tobacco Use?: No Use of E-Cig and/or Vaping dev: No Substance use?: No Alcohol Use?: No Immunizations Up To Date Tetanus Booster (TDap): Unknown Seasonal Allergies Seasonal Allergies: Yes Past Medical History Surgery/Hospitalization HX: Hypertension Surgeries: Yes (Tubal ligation) Cardiac, Tonsillectomy, Tubal Ligation Respiratory: No Currently Using CPAP: No Currently Using BIPAP: No Cardiac: Yes (hypertension) Cardiomyopathy, Hypertension Neurological: No Reproductive Disorders: No Genitourinary: No Gastrointestinal: No Musculoskeletal: Yes (arthritis in knee and wrists) Endocrine: No HEENT: No (Hard of hearing) Hearing Impairment: Hard of Hearing Cancer: No Psychosocial: No Integumentary: No Blood Disorders: No Adverse Reaction/Blood Tranf: No Family Medical History Cardiovascular disease 19 FATHER G8 SISTER Diabetes mellitus 19 FATHER G8 SISTER Myocardial infarction 19 FATHER Diabetes Physical Exam Vital Signs Vital Signs - First Documented 05/23/21 20:11 Temp 36.3 Pulse 66 Resp 18 B/P (MAP) 195/110 (138) Pulse Ox 98 O2 Delivery Room Air Capillary Refill : Height, Weight, BMI Height: 5'7.00" Weight: 164lbs. 4.0oz. 74.009653lj; 26.98 BMI Method:Stated General Appearance: WD/WN, no apparent distress Cardiovascular: normal peripheral pulses Shoulder: normal inspection, non-tender, no evidence of injury, normal ROM Elbow/Forearm: normal ROM, Left, pain (tender to palpation and movement on dis sony left forearm), soft tissue tenderness, swelling Wrist: Yes normal inspection, Yes non-tender, Yes no evidence of injury, Yes normal ROM Hand: normal inspection, non-tender, no evidence of injury, normal ROM Neurologic/Tendon: normal sensation, normal motor functions, normal tendon functions Neurologic/Psychiatric: alert, oriented x 3 Skin: normal color, warm/dry Procedures/Interventions Splinting and Joint Reduction : Location: Left upper extremity Pre-Proc Neuro Vasc Exam: normal Post-Proc Neuro Vasc Exam: normal Progress Patient placed in a sling for her left arm. Counseled on care and management. Advised to only use the sling for the next 2 to 3 days. Arm Sling: [place] Progress/Results/Core Measures Results/Orders My Orders Orders - GILBERTO COELHO MD Forearm 2 View Left (05/23/21 20:10) Ice: Apply To Affected Area (05/23/21 20:20) Ed Ortho/Other Supplies Order (05/23/21 20:20) Orthopedic Equiment (05/23/21 20:20) Vital Signs/I&O 05/23/21 20:11 Temp 36.3 Pulse 66 Resp 18 B/P (MAP) 195/110 (138) Pulse Ox 98 O2 Delivery Room Air Progress Progress Note #1: Progress Note order xrays of the left forearm to evaluate for bony injury Progress Note #2: Progress Note Counseled on results of no acute fracture or dislocation. Discussed on sym ptomatic treatment and follow up and return precautions. She felt that the pain was improved with holding her arm under 90 degree angle at her elbow. Will place in a sling for 2 to 3 days to allow her arm to rest. Her blood pressure is elevated but she is not having any symptoms of high blood pressure such as headache, vision change, chest pain, nausea, vomiting. Counseled to make sure she is taking her medications and to follow-up with Dr. Shah as he may need to adjust her medication. Diagnostic Imaging Diagonstic Imaging: Xray Plain Films/CT/US/NM/MRI: forearm Comments [facility] [place], [place] NAME: BUDDY HORN [facility] REC#: [id number] PT STATUS: DEP ER : 1950 PHYSICIAN: GILBERTO COELHO MD ADMIT DATE: 05/23/21/ER FS Signed Date of Exam:05/23/21 FOREARM 2 VIEW LEFT HISTORY: Pain and swelling of the left forearm after fall yesterday. TECHNIQUE: 2 views of the left forearm. COMPARISON: 04/26/2021. FINDINGS: No acute fracture or dislocation is seen in the left forearm. Alignment is normal. No elbow joint effusion is seen. Joint spaces generally appear preserved. There is an old nonunited fracture of the ulnar styloid process. There is mild soft tissue swelling at the radial aspect of the distal left forearm. IMPRESSION: No acute osseous abnormality is seen in the left forearm. Dictated by: Dictated on workstation # [id number] Dict: 05/23/212022 Trans: 05/23/212052 [facility] [id number] Interpreted by: LOUIE SCOTT MD Electronically signed by: LOUIE SCOTT MD 05/23/212052 Reviewed: Reviewed by Me Departure Impression Primary Impression: Contusion of left forearm, initial encounter Additional Impression: Elevated blood pressure reading with diagnosis of hypertension Disposition: 01 HOME, SELF-CARE Condition: Stable Departure-Patient Inst. Decision time for Depature: 20:20 Referrals: DAVID SHAH MD (PCP/Family) Primary Care Physician Patient Instructions: How to Use a Shoulder Sling ED, Minor Contusion ED, Muscle and Bone Pain (DC), Using Cold for Pain, Controlling Your Blood Pressure Through Lifestyle, DASH Diet Add. Discharge Instructions: Wear sling for next 2-3 days to limit movement of your left forearm. Ice 20-30 minutes every few hours as needed for pain and swelling. Ibuprofen 600 mg (3 over the counter 200 mg tablets) every 8 hours as needed for pain, swelling and inflammation. Make sure you are taking your blood pressure medicines and follow up with Dr. Shah about your blood pressure and the forearm. If your forearm is not improving or worsening then Dr. Shah may need to repeat xrays or do other imaging to check for injury not seen on tonight's xrays. He may need to adjust your blood pressure medicines if you continue to have elevated blood pressure. GILBERTO COELHO MD May 23, 2021 20:15
--- NOTE | 2021-05-23 20:27 | Diagnostic Imaging Report ---
HISTORY: Pain and swelling of the left forearm after fall yesterday. TECHNIQUE: 2 views of the left forearm. COMPARISON: 04/26/2021. FINDINGS: No acute fracture or dislocation is seen in the left forearm. Alignment is normal. No elbow joint effusion is seen. Joint spaces generally appear preserved. There is an old nonunited fracture of the ulnar styloid process. There is mild soft tissue swelling at the radial aspect of the distal left forearm. IMPRESSION: No acute osseous abnormality is seen in the left forearm. Dictated by: Dictated on workstation # [id number]
== END 2021-05-23 20:31 | disposition home or self-care (01) ==
LOC: EDUNIT# 20:01 → ER FS 20:04
DX: S50.12XA Contusion of left forearm, initial encounter (principal); I10 Essential (primary) hypertension; W18.30XA Fall on same level, unspecified, initial encounter; Y93.01 Activity, walking, marching and hiking; Y92.410 Unspecified street and highway as the place of occurrence of the external cause
CPT/HCPCS: 99281

== ENCOUNTER 2021-10-31 16:40 | Emergency (ER) | payer MEDICARE ==
[~2021-10-31] VITALS: Ht 170 cm; Wt 77.0 kg
--- NOTE | 2021-10-31 17:02 | ED Upper Extremity ---
General Chief Complaint: Upper Extremity Stated Complaint: RT HAND INJ History of Present Illness Date Seen by Provider: Oct 31, 2021 Time Seen by Provider: 17:00 Initial Comments 70-year-old female is here with complaints of right hand and right wrist pain after having a trip and fall outside her home. Denies sensory loss, head strike, LOC. Allergies and Home Medications Allergies Coded Allergies: No Known Drug Allergies (Unverified , 10/03/18) Patient Home Medication List Home Medication List Reviewed: Yes Aspirin (Aspirin EC) 81 Mg Tablet.dr, 81 MG PO DAILY Prescribed by: RUBEN PEREZ on 10/05/1845 Metoprolol Tartrate (Metoprolol Tartrate) 25 Mg Tablet, 12.5 MG PO BID Prescribed by: RUBEN PEREZ on 10/05/1845 Sacubitril/Valsartan (Entresto 24 mg-26 mg Tablet) 1 Each Tablet, 1 TAB PO BID Prescribed by: RUBEN PEREZ on 10/05/18944 Review of Systems Constitutional: no symptoms reported EENTM: no symptoms reported Respiratory: no symptoms reported Cardiovascular: no symptoms reported Gastrointestinal: no symptoms reported Genitourinary: no symptoms reported Musculoskeletal: joint pain, joint swelling Skin: no symptoms reported Psychiatric/Neurological: No Symptoms Reported Past Khpqvrk-Yeuvqy-Pgfpiy Hx Immunizations Up To Date Tetanus Booster (TDap): Unknown First/Initial COVID19 Vaccinat: UNKNOWN DATE Seasonal Allergies Seasonal Allergies: Yes Past Medical History Surgery/Hospitalization HX: Hypertension Surgeries: Yes (Tubal ligation) Cardiac, Tonsillectomy, Tubal Ligation Respiratory: No Currently Using CPAP: No Currently Using BIPAP: No Cardiac: Yes (hypertension) Cardiomyopathy, Hypertension Neurological: No Reproductive Disorders: No Genitourinary: No Gastrointestinal: No Musculoskeletal: Yes (arthritis in knee and wrists) Endocrine: No HEENT: No (Hard of hearing) Hearing Impairment: Hard of Hearing Cancer: No Psychosocial: No Integumentary: No Blood Disorders: No Adverse Reaction/Blood Tranf: No Family Medical History Cardiovascular disease 19 FATHER G8 SISTER Diabetes mellitus 19 FATHER G8 SISTER Myocardial infarction 19 FATHER Diabetes Physical Exam Vital Signs Vital Signs - First Documented 10/31/21 17:04 Temp 36.4 Pulse 71 Resp 18 B/P (MAP) 121/84 (96) Pulse Ox 100 O2 Delivery Room Air Capillary Refill : Height, Weight, BMI Height: 5'7.00" Weight: 164lbs. 4.0oz. 74.691877jw; 26.98 BMI Method:Stated General Appearance: WD/WN, no apparent distress HEENT: PERRL/EOMI Neck: full range of motion Shoulder: no evidence of injury Elbow/Forearm: normal inspection, non-tender, no evidence of injury, normal ROM, Right Wrist: Yes bone tenderness (right wrist), Yes limited ROM, Yes pain, Yes soft tissue tenderness, Yes swelling Hand: Right, bone tenderness, limited ROM, soft tissue tenderness, stiffness, swelling Neurologic/Psychiatric: no motor/sensory deficits, alert, normal mood/affect, oriented x 3 Skin: normal color Progress/Results/Core Measures Results/Orders My Orders Orders - YOAV SETHI MD Hand 3 View Right (10/31/21 17:04) Wrist 3 View Right (10/31/21 17:18) Vital Signs/I&O 10/31/21 10/31/21 17:04 18:06 Temp 36.4 36.4 Pulse 71 71 Resp 18 18 B/P (MAP) 121/84 (96) 121/84 Pulse Ox 100 100 O2 Delivery Room Air Room Air Progress Progress Note : Progress Note 1. RIGHT HAND/ WRIST INJURY: - XR RIGHT HAND/ WRIST: no fracture or dislocation - NSAID prn pain/ ice - Follow up with PCP in 7 to 10 days - Wrist splint. Diagnostic Imaging Diagonstic Imaging: Xray Plain Films/CT/US/NM/MRI: hand, other Comments [facility] [place], [place] NAME: KORYBUDDY J [facility] REC#: [id number] PT STATUS: REG ER : 1950 PHYSICIAN: YOAV SETHI MD ADMIT DATE: 10/31/21/ER FS Draft Date of Exam:10/31/21 WRIST 3 VIEW RIGHT INDICATION: Right wrist pain. EXAMINATION: AP, oblique and lateral views of the right wrist were obtained. COMPARISON: 09/23/2018. FINDINGS: No acute fracture or acute bony abnormality is seen. There is degenerative change of the radiocarpal joint and radioulnar joint. There is a chronic ulnar styloid avulsion. IMPRESSION: Degenerative findings of the right wrist, as above, with no acute appearing abnormality. Dictated on workstation # [id number] Dict: 10/31/21 1745 Trans: 10/31/21 175 [facility] [id number] Interpreted by: MARELY ZHOU MD Electronically signed by: [facility] [place], [place] NAME: BUDDY HORN [facility] REC#: [id number] PT STATUS: REG ER : 1950 PHYSICIAN: YOAV SETHI MD ADMIT DATE: 10/31/21/ER FS Draft Date of Exam:10/31/21 HAND 3 VIEW RIGHT INDICATION: Fall with right hand pain. EXAMINATION: AP, oblique and lateral views of the right hand were obtained. There are diffuse degenerative changes throughout the interphalangeal joints and degenerative change of the 1st carpal metacarpal joint and radiocarpal joint. There is chronic ulnar styloid avulsion. There is no acute fracture seen. IMPRESSION: Multifocal degenerative changes with no acute abnormality of the right hand. Dictated on workstation # [id number] Dict: 10/31/21 1715 Trans: 10/31/21 171 [facility] [id number] Interpreted by: MARELY ZHOU MD Electronically signed by: Departure Impression Primary Impression: Contusion of right hand Qualified Codes: S60.221A - Contusion of right hand, initial encounter Disposition: 01 HOME, SELF-CARE Condition: Stable Departure-Patient Inst. Referrals: DAVID NOYOLA MD (PCP/Family) Primary Care Physician Patient Instructions: Contusion (DC) Add. Discharge Instructions: - NSAID prn pain/ ice - Follow up with PCP in 7 to 10 days - Wrist splint. All discharge instructions reviewed with patient and/or family. Voiced understanding. YOAV SETHI MD Oct 31, 2021 17:02
--- NOTE | 2021-10-31 17:19 | Diagnostic Imaging Report ---
INDICATION: Fall with right hand pain. EXAMINATION: AP, oblique and lateral views of the right hand were obtained. There are diffuse degenerative changes throughout the interphalangeal joints and degenerative change of the 1st carpal metacarpal joint and radiocarpal joint. There is chronic ulnar styloid avulsion. There is no acute fracture seen. IMPRESSION: Multifocal degenerative changes with no acute abnormality of the right hand. Dictated by: Dictated on workstation # [id number]
--- NOTE | 2021-10-31 17:54 | Diagnostic Imaging Report ---
INDICATION: Right wrist pain. EXAMINATION: AP, oblique and lateral views of the right wrist were obtained. COMPARISON: 09/23/2018. FINDINGS: No acute fracture or acute bony abnormality is seen. There is degenerative change of the radiocarpal joint and radioulnar joint. There is a chronic ulnar styloid avulsion. IMPRESSION: Degenerative findings of the right wrist, as above, with no acute appearing abnormality. Dictated by: Dictated on workstation # [id number]
[2021-10-31 18:06] VITALS: BP 121/84
== END 2021-10-31 18:20 | disposition home or self-care (01) ==
LOC: ER FS 16:41 → EDUNIT# 16:59 → ER FS 17:01
DX: S60.221A Contusion of right hand, initial encounter (principal); M25.531 Pain in right wrist; W01.0XXA Fall on same level from slipping, tripping and stumbling without subsequent striking against object, initial encounter; Y92.008 Other place in unspecified non-institutional (private) residence as the place of occurrence of the external cause
CPT/HCPCS: 73110; 73130

== ENCOUNTER → 2022-03-22 | Outpatient (CLI) | payer MEDICARE | LOC: CARDFS 10:21 | PROVIDERS: ATTEND Internal Medicine Cardiovascular Disease | DX: I11.9 Hypertensive heart disease without heart failure (principal); I34.0 Nonrheumatic mitral (valve) insufficiency | CPT/HCPCS: 93306 ==

== ENCOUNTER → 2022-11-30 | Outpatient (CLI) | payer MEDICARE ==
[~2022-11-30] MED LIST changes: +CATHETER FLUSH 10 ML SYR IVP PRN; +REGADENOSON 0.4 MG/5 ML SYR IV ONE
[2022-11-30 09:23] VITALS: BP 115/80
--- NOTE | 2022-11-30 13:35 | Cardiology Stress Test Report ---
Stress Test Report Date of Procedure/Referring: Date of Procedure: Nov 30, 2022 PCP Be Shah MD Admitting Physician Admitting Physician: Attending Physician: Mckenzie Mcdaniel MD Baseline Heart Rate: 54 Baseline Blood Pressure: Blood Pressure Systolic: 115 Blood Pressure Diastolic: 80 Baseline Vitals Vital Signs Date Time Temp Pulse Resp B/P (MAP) Pulse Ox O2 Delivery O2 Flow Rate FiO2 11/30/22 09:23 54 115/80 (92) Baseline EKG: Baseline EKG: NSR Summary After explaining the procedure to the patient, she signed a consent and then brought to the stress nuclear laboratory. Patient received 0.4 mg Lexiscan for stress test, ECG, heart rate and blood pressure were monitored continuously. Resting and stress dose of radio tracer were injected, imaging was acquired and reviewed in short axis, horizontal long axis and vertical long axis views. TID: 1.08 SSS: 16 SDS: 13 EF: 74 Patient tolerated Lexiscan well Occasional PVCs noted during recovery Reversible ischemia involving the inferior wall, inferolateral wall and anterola teral wall Small left ventricle with normal contractility, ejection fraction 74% Copy Copies To 1: BE SHAH MD, BASHAR J MD Nov 30, 2022 13:35
== END ==
LOC: CARD 07:32
PROVIDERS: ATTEND Internal Medicine Cardiovascular Disease
DX: I10 Essential (primary) hypertension (principal)
CPT/HCPCS: 78452; 93017; A9502

== ENCOUNTER 2022-12-14 08:30 | Day surgery (SDC) | payer MEDICARE ==
[~2022-12-14] VITALS: Ht 170.2 cm; Wt 79.6 kg
[2022-12-14] VITALS (10 sets, daily range): BP systolic 116–157; BP diastolic 74–107
[~2022-12-14 08:30] MED LIST changes: -CATHETER FLUSH 10 ML SYR IVP PRN; -REGADENOSON 0.4 MG/5 ML SYR IV ONE
[2022-12-14] MEDS ORDERED: LIDOCAINE 1% INJ 20 ML VIAL ONE (08:52)
[2022-12-14] MEDS ORDERED: HEParin (CATH LAB) 2,000 ML IV ONE (08:52)
[2022-12-14] MEDS ORDERED: NS IV 1000 ML 1,000 ML ONE (08:52)
[2022-12-14] MEDS ORDERED: NS IV 1000 ML 1,000 ML IV SCH ×2 (09:00→12:00)
[2022-12-14 09:17] LABS: HEMATOCRIT 48 % (35-52); HEMOGLOBIN 15.6 g/dL (11.5-16.0); MEAN CORPUSCULAR HEMOGLOBIN 30 pg (25-34); MEAN CORPUSCULAR HGB CONC 33 g/dL (32-36); MEAN CORPUSCULAR VOLUME 91 fL (80-99); PLATELET COUNT 247 10^3/uL (130-400)
--- NOTE | 2022-12-14 09:23 | Diagnostic Imaging Report ---
EXAMINATION: Chest 1 view HISTORY: Preoperative exam COMPARISON: 11/11/2018 FINDINGS: The lungs are clear without edema or pneumonia. No pleural effusion or pneumothorax. Heart size is normal. IMPRESSION: 1. Clear lungs. Dictated by: Dictated on workstation # [id number]
[2022-12-14 09:28] LABS: INR 0.9 (0.8-1.4); PROTHROMBIN TIME PATIENT 12.7 SEC (12.2-14.7)
[2022-12-14 09:36] LABS: ALBUMIN 4.2 GM/DL (3.2-4.5); BILIRUBIN,TOTAL 0.4 MG/DL (0.1-1.0); CALCIUM 9.6 MG/DL (8.5-10.1); CREATININE SERUM 1.23 MG/DL (0.60-1.30); POTASSIUM 3.6 MMOL/L (3.6-5.0); TOTAL PROTEIN 7.2 GM/DL (6.4-8.2)
[2022-12-14] MEDS ORDERED: MIDAZOLAM INJ 5 MG/5 ML VIAL ONE (11:03)
[2022-12-14] MEDS ORDERED: fentaNYL INJECTION 100 MCG/2 ML VIAL ONE (11:03)
--- NOTE | 2022-12-14 11:16 | Cardiac Procedure Note-CS/ASA ---
Pre-Procedure Note Pre-Op Procedure Note Date of Available H&P: Dec 01, 2022 Date H&P Reviewed: Dec 14, 2022 Time H&P Reviewed: 11:16 History & Physical: H&P Reviewed, Patient Examed, No changes noted Pre-Operative Diagnosis: CAD Moderate Sedation PreProcedure Time 11:16 ASA Score 3 Airway Lungs Heart ASA score ASA 1: a normal healthy patient ASA 2: a patient with a mild systemic disease (mid diabetes, controlled hypertension, obesity ASA 3: a patient with a severe systemic disease that limits activity (angina, COPD, prior Myocardial infarction) ASA 4: a patient with an incapacitating disease that is a constant threat to life (CHF, renal failure) ASA 5: a moribund patient not expected to survive 24 hrs. (ruptured aneurysm) ASA 6: a declared brain- patient whose organs are being harvested. For emergent operations, add the letter E after the classification Mallampati Classification Grade 3 Sedation Plan Analgesia, Amnesia, Plan communicated to team members, Discussed options with patient/fam, Discussed risks with patient/fam The patient is an appropriate candidate to undergo the planned procedure, sedation, and anesthesia. The patient immediately re-assessed prior to indication. RUBEN PEREZ MD Dec 14, 2022 11:16
[2022-12-14] MEDS ORDERED: HEParin 1000 UNIT/ML (10ML VIAL) FOR BOLUS ONE (11:19)
[2022-12-14] MEDS ORDERED: VERAPAMIL 5 MG/2 ML (CALAN) VIAL IV ONE (11:19)
[2022-12-14] MEDS ORDERED: NITRO DRIP 25000 MCG/D5W 250 ML IV ONE (11:20)
--- NOTE | 2022-12-14 11:50 | Discharge Inst-Post CATH ---
Discharge Inst-CATH/EP Problems Reviewed?: Yes Post Cardiac Cath/EP D/C Inst Follow Up/Plan Appointment with Dr. Mcdaniel's office in 2 to 4 weeks <b>CARDIAC CATH/EP PROCEDURE DISCHARGE INSTRUCTIONS</b> ACTIVITY * Go Home directly and rest. * Limit activity of the leg (or wrist if it was used) for 7 days including aer obics, swimming, jogging, bicycling, etc. * Restrict stair-climbing for 7 days if possible, if not, climb up with your non-cath leg, then bring together on the same step. * Avoid lifting, pushing, pulling or excessive movement of the affected extremi ty for 7 days. * Customary sexual activity may be resumed after 2 days-use caution not to use a position that strains or causes pain to the affected extremity. * No driving for 24 hours. * NO SMOKING. * Avoid straining for bowel movements for 7 days. * Gentle walking on level ground is allowed. * Returning to work will depend on the type of procedure and the results. Your doctor will discuss this with you. CALL YOUR DOCTOR FOR ANY OF THE FOLLOWING: *If bleeding from the puncture site occurs- Apply gentle pressure to site with clean cloth and call your doctor or EMS. * If a knot or lump forms under the skin, increases in size, or causes pain. * If bruising appears to be worsening or moving further down your leg instead of disappearing. * Temperature above 101 F. CARE OF YOUR GROIN INCISION; * Bruising or purple discoloration of the skin near the puncture site is common. * You may shower only, no bathtub bathing for 5 days. Be careful to avoid slipping as your leg may feel stiff. * If a closure device was used on your femoral artery, please see the attached guide regarding care of the device and your leg. * Leave dressing on FOR 24 hours. CARE OF YOUR WRIST INCISION; * Bruising or purple discoloration of the skin near the puncture site is common. * You may shower. * DO NOT submerge wrist. * Leave dressing on FOR 24 hours. RUBEN MCDANIEL MD Dec 14, 2022 11:50
--- NOTE | 2022-12-14 11:53 | Cardiac Cath Report ---
Cardiac Cath Report Physician (s)/[employer] Supervisor (s) Physician RUBEN PEREZ MD Pre-Procedure Diagnosis Pre-Procedure Diagnosis: CAD Post-Procedure Note Procedure Start Date: Dec 14, 2022 Name of Procedure: Left heart catheterization Findings/Procedure Note PROCEDURE NOTE: 72-year-old lady with history of hypertension, hyperlipidemia, had an abnormal stress test, scheduled for cardiac catheterization possible PTCA. After explaining the procedure to the patient, all pros and cons were explained, all questions were answered. The patient signed the consent and then she was placed in the cardiac catheterization laboratory. Groin was prepped in SL fashion local anesthesia was used. Sheath placed in the right radial artery, Spencer catheter was advanced to the left ventricular cavity, pressure was measured, pullback LV to aorta was done, engage the right and left coronary system, angiogram was done. At the end of the procedure the sheath was removed. Vascular band was used FINDINGS: Hemodynamics LV 106/11, end-diastolic pressure of 11 Aorta 117/82 mean of 89 ANATOMY: Left Main is free of obstructive disease Left Anterior Descending is tortuous with no obstructive disease Left Circumflex is nondominant artery with no obstructive disease Right Coronary Artery is dominant artery with no significant obstructive disease LV Gram was not done, pressure was measured CONCLUSION: Mild coronary artery disease with a large dominant right coronary artery tortuous artery with no obstructive disease Normal left ventricular end-diastolic pressure DISCUSSION AND RECOMMENDATION: Abnormal stress test is probably due to small vessel disease or extracardiac attenuation, no intervention is warranted Anesthesia Type: Conscious Sedation Estimated blood loss (mL): 10 ml Contrast Amount: 19 ml Total Radiation Dose: 154 mGy Post-Procedure Diagnosis Post-operative diagnosis: Chest pain Coronary artery disease Hypertension Hyperlipidemia RUBEN PEREZ MD Dec 14, 2022 11:53
== END 2022-12-14 14:45 | disposition home or self-care (01) ==
LOC: CATH 08:30 → EDSTATUS 11:00 → CATH 14:45
PROVIDERS: ATTEND Internal Medicine Cardiovascular Disease
DX: I25.10 Atherosclerotic heart disease of native coronary artery without angina pectoris (principal); I42.8 Other cardiomyopathies; I11.0 Hypertensive heart disease with heart failure; I50.22 Chronic systolic (congestive) heart failure; E11.9 Type 2 diabetes mellitus without complications; I65.29 Occlusion and stenosis of unspecified carotid artery; E78.2 Mixed hyperlipidemia; I65.23 Occlusion and stenosis of bilateral carotid arteries; Z79.84 Long term (current) use of oral hypoglycemic drugs
CPT/HCPCS: 71045; 80053; 80061; 85027; 85610; 85730; 87081; 93005; 93458; C1894; 36415